=== PATIENT | female | born 1945 | race Caucasian/White ===

== ENCOUNTER 2021-03-11 21:54 | Inpatient (IN) | payer MEDICARE, MEDICAID ==
[~2021-03-11] VITALS: Ht 162.6 cm; Wt 86.8 kg
[2021-03-11] MEDS ORDERED: NiCARDipine HCL 25 MG in SODIUM CHLORIDE 0.9% 240 ML IV PRN ×2 (22:15)
[2021-03-11] MEDS ORDERED: ONDANSETRON HCL 4 MG/2 ML VIAL IVP PRN ×2 (22:15)
[2021-03-11] MEDS ORDERED: DEXTROSE 50%-WATER 25 GM/50 ML SYRINGE IVP PRN (22:30)
[2021-03-11] MEDS ORDERED: ESCI-8 PO (22:32)
[2021-03-11] MEDS ORDERED: CALC0.25 PO (22:32)
[2021-03-11] MEDS ORDERED: PANT-31 PO (22:32)
[2021-03-11] MEDS ORDERED: ASPI81TA87 PO (22:32)
[2021-03-11] MEDS ORDERED: ROSU20TA73 PO (22:32)
[2021-03-11] MEDS ORDERED: LOSA50TA37 PO (22:32)
[2021-03-11] MEDS ORDERED: REPAGLINIDE 2 MG CLINICAL (22:32)
[2021-03-11] MEDS ORDERED: MECL-186 PO (22:32)
[2021-03-11] MEDS ORDERED: METO50 PO (22:32)
[2021-03-12] VITALS (7 sets, daily range): BP systolic 109–162; BP diastolic 48–107
[2021-03-12 06:15] LABS: CALCIUM, TOTAL 9.1 mg/dL (8.8-10.5); CREATININE 2.81 mg/dL (0.60-1.30); MAGNESIUM 2.5 mg/dL (1.80-2.40); POTASSIUM 4.3 mmol/L (3.5-5.1)
[2021-03-12 06:19] LABS: BASOPHILS % (AUTO) 0.6 % (0.0-2.0); EOSINOPHILS % (AUTO) 0.8 % (1.0-6.0); HEMATOCRIT 35.4 % (36-46); HEMOGLOBIN 11.8 g/dL (12.0-16.0); LYMPHOCYTES # (AUTO) 2.4 K/uL (1.0-4.8); LYMPHOCYTES % (AUTO) 25.6 % (22.0-44.0); MEAN CORPUSCULAR HEMOGLOBIN 28.9 pg (26.0-34.0); MEAN CORPUSCULAR HGB CONC 33.3 G/dL (31.0-37.0); MEAN CORPUSCULAR VOLUME 87 fL (80-100); MONOCYTES # (AUTO) 0.8 K/uL (0.1-1.0); MONOCYTES % (AUTO) 8.4 % (2.0-9.0); NEUTROPHILS # (AUTO) 6.1 K/uL (1.8-7.7); NEUTROPHILS % (AUTO) 64.6 % (40.0-70.0); PLATELET COUNT (AUTO) 306 K/uL (150-450); RED BLOOD CELL COUNT(AUTO) 4.07 MIL/uL (4.00-5.20); RED CELL DISTRIBUTION WIDTH 13.5 % (11.5-14.5)
[2021-03-12] MEDS: INSULIN LISPRO 100 UNITS/ML SQ PRN ×2 (17:37→21:01)
[2021-03-12] MEDS: LOSARTAN POTASSIUM 50 MG TABLET PO SCH (17:39)
[2021-03-12] MEDS: METOPROLOL TARTRATE 50 MG TABLET PO SCH (20:53)
[2021-03-12] MEDS: ACETAMINOPHEN 325 MG TABLET PO PRN (20:53)
[2021-03-12] MEDS: HydrALAZINE HCL 20 MG/ML VIAL IVP PRN (22:41)
[2021-03-13] VITALS (7 sets, daily range): BP systolic 133–149; BP diastolic 56–82
[2021-03-13 02:04] LABS: GLUCOSE,POINT OF CARE 197 MG/DL (70-110)
[2021-03-13 02:04] LABS: GLUCOSE,POINT OF CARE 277 MG/DL (70-110)
[2021-03-13] MEDS: HydrALAZINE HCL 20 MG/ML VIAL IVP PRN (02:55)
[2021-03-13 08:21] LABS: GLUCOMETER DEV NAME(LOC) 5S.2B; GLUCOSE,POINT OF CARE 210 MG/DL (70-110)
[2021-03-13] MEDS: INSULIN LISPRO 100 UNITS/ML SQ PRN ×4 (08:32→20:53)
[2021-03-13] MEDS: LOSARTAN POTASSIUM 50 MG TABLET PO SCH (08:48)
[2021-03-13] MEDS: METOPROLOL TARTRATE 50 MG TABLET PO SCH ×2 (08:48→20:31)
[2021-03-13 12:35] LABS: GLUCOMETER DEV NAME(LOC) 5S.2B; GLUCOSE,POINT OF CARE 279 MG/DL (70-110)
[2021-03-13 15:34] LABS: COVID AG,FIA SOURCE NASAL SWAB
[2021-03-13 22:31] LABS: GLUCOMETER DEV NAME(LOC) 5N.3; GLUCOSE,POINT OF CARE 187 MG/DL (70-110)
[2021-03-13 22:31] LABS: GLUCOMETER DEV NAME(LOC) 5N.3; GLUCOSE,POINT OF CARE 224 MG/DL (70-110)
[2021-03-14 00:07] VITALS: BP 139/69
[2021-03-14 04:26] VITALS: BP 154/72
[2021-03-14] MEDS: HydrALAZINE HCL 20 MG/ML VIAL IVP PRN (04:31)
[2021-03-14 05:51] LABS: GLUCOMETER DEV NAME(LOC) 5S.2B; GLUCOSE,POINT OF CARE 207 MG/DL (70-110)
[2021-03-14 05:54] LABS: BASOPHILS % (AUTO) 0.4 % (0.0-2.0); EOSINOPHILS % (AUTO) 0.5 % (1.0-6.0); HEMATOCRIT 32.3 % (36-46); HEMOGLOBIN 11.1 g/dL (12.0-16.0); LYMPHOCYTES # (AUTO) 2.6 K/uL (1.0-4.8); MEAN CORPUSCULAR HEMOGLOBIN 29.5 pg (26.0-34.0); MEAN CORPUSCULAR HGB CONC 34.2 G/dL (31.0-37.0); MEAN CORPUSCULAR VOLUME 86 fL (80-100); MONOCYTES # (AUTO) 0.7 K/uL (0.1-1.0); MONOCYTES % (AUTO) 9.5 % (2.0-9.0); NEUTROPHILS # (AUTO) 4.3 K/uL (1.8-7.7); NEUTROPHILS % (AUTO) 55.6 % (40.0-70.0); PLATELET COUNT (AUTO) 283 K/uL (150-450); RED BLOOD CELL COUNT(AUTO) 3.75 MIL/uL (4.00-5.20); RED CELL DISTRIBUTION WIDTH 13.7 % (11.5-14.5)
[2021-03-14] MEDS: INSULIN LISPRO 100 UNITS/ML SQ PRN ×2 (05:55→12:34)
[2021-03-14] MEDS: ACETAMINOPHEN 325 MG TABLET PO PRN (05:56)
[2021-03-14 06:07] LABS: CALCIUM, TOTAL 8.9 mg/dL (8.8-10.5); CREATININE 3.31 mg/dL (0.60-1.30); POTASSIUM 3.6 mmol/L (3.5-5.1)
[2021-03-14 06:20] VITALS: BP 121/59
[2021-03-14 07:30] VITALS: BP 124/63
[2021-03-14] MEDS: METOPROLOL TARTRATE 50 MG TABLET PO SCH (08:20)
[2021-03-14] MEDS: LOSARTAN POTASSIUM 50 MG TABLET PO SCH (08:20)
[2021-03-14 11:56] VITALS: BP 146/78
[2021-03-14 12:17] LABS: GLUCOMETER DEV NAME(LOC) 5S.2B; GLUCOSE,POINT OF CARE 231 MG/DL (70-110)
[2021-03-14] MEDS ORDERED: METO25 PO (15:52)
[2021-03-14] MEDS ORDERED: CYCL05OE OU (15:52)
[2021-03-14] MEDS ORDERED: LATA2.5D14 OU (15:52)
[2021-03-14] MEDS ORDERED: CALC0.253 PO (15:52)
[2021-03-21] MEDS ORDERED: ASPI-1450 PO (02:57)
[2021-03-21] MEDS ORDERED: ESCI-8 PO (02:57)
[2021-03-21] MEDS ORDERED: REPA1TAB5 PO (02:57)
[2021-03-21] MEDS ORDERED: PANT-31 PO (02:57)
[2021-03-21] MEDS ORDERED: ROSU20TA73 PO (02:57)
[2021-03-21] MEDS ORDERED: INSU300I SQ (02:57)
[2021-03-22] MEDS ORDERED: REPA2TAB8 PO (14:20)
[2021-03-23] MEDS ORDERED: CYCL05OE OU (02:31)
[2021-03-23] MEDS ORDERED: AMLO-258 PO (02:31)
[2021-03-23] MEDS ORDERED: SENN8.6T90 PO (02:31)
[2021-03-23] MEDS ORDERED: HYDR25TA84 PO (02:31)
[2021-03-23] MEDS ORDERED: XALA2.5OS OU (02:31)
== END 2021-03-14 14:10 | DRG 64 ==
LOC: EMS 22:05 → ICU 22:30 → 5S 03-13 06:00
PROVIDERS: ADMIT Internal Medicine; ATTEND Internal Medicine
DX: I61.1 Nontraumatic intracerebral hemorrhage in hemisphere, cortical (principal); G93.6 Cerebral edema; Z20.822 Contact with and (suspected) exposure to COVID-19; I99.8 Other disorder of circulatory system; Z60.2 Problems related to living alone; E78.5 Hyperlipidemia, unspecified; E11.22 Type 2 diabetes mellitus with diabetic chronic kidney disease; I12.9 Hypertensive chronic kidney disease with stage 1 through stage 4 chronic kidney disease, or unspecified chronic kidney disease; N18.30 Chronic kidney disease, stage 3 unspecified; Z79.899 Other long term (current) drug therapy
CPT/HCPCS: 70450; 80048; 82962; 83735; 85025; 87081; 92526; 92610; 97112; 97116; 97162; 97167; 97530; 97535; 99285; G0378; J0360; J3490; J7050

== ENCOUNTER 2022-07-19 16:45 | Inpatient (IN) | payer MEDICARE, MEDICAID ==
[~2022-07-19] VITALS: Ht 157.5 cm; Wt 79.5 kg
[~2022-07-19 16:45] MED LIST: AMLO-258 NG; CALC0.253 NG; CYCL05OE OU; ESCI-8 PO; HEPARIN SODIUM,PORCINE 1,000 UNITS/ML VIAL ONE; HYDR25TA84 PO; INSU100V SQ; INSU300I SQ; LATA2.5D14 OU; METO25 PO; PANT-31 PO; REPA2TAB8 PO; ROSU20TA73 NG; SENN8.6T90 NG; SOLOSTAR SQ
[2022-07-19] MEDS ORDERED: DEXTROSE 50%-WATER 25 GM/50 ML SYRINGE IVP PRN (18:00)
[2022-07-19] MEDS ORDERED: LACTULOSE 20 GM/30 ML SOLUTION UDCUP PO PRN (18:00)
[2022-07-19] MEDS ORDERED: CeFAZolin 1 GM/DEXTROSE 50 ML IV SCH (19:00)
[2022-07-19 20:00] VITALS: BP 144/55
[2022-07-19] MEDS ORDERED: SODIUM CHLORIDE 0.9% 250 ML IV ONE (22:06)
[2022-07-19] MEDS: INSULIN LISPRO 100 UNITS/ML SQ PRN (22:33)
[2022-07-19 22:36] LABS: GLUCOMETER DEV NAME(LOC) 2WR.2B; GLUCOSE,POINT OF CARE 233 MG/DL (70-110)
[2022-07-19] MEDS: MEGESTROL ACETATE 40 MG TABLET PO SCH (22:50)
[2022-07-19] MEDS: CITALOPRAM HYDROBROMIDE 10 MG TABLET PO SCH (22:50)
[2022-07-19] MEDS: DORZOLAMIDE HCL 2% 10 ML OPHTHALMIC SOLUTION OU SCH (22:50)
[2022-07-19] MEDS: LATANOPROST 0.005% 2.5 ML OPHTHALMIC SOLUTION OU SCH (22:50)
[2022-07-19] MEDS: METOPROLOL TARTRATE 50 MG TABLET PO SCH (22:51)
[2022-07-19] MEDS: PANTOPRAZOLE SODIUM 40 MG DR TABLET PO SCH (22:59)
[2022-07-19] MEDS: APIXABAN 2.5 MG TABLET PO SCH (22:59)
[2022-07-19] MEDS: FUROSEMIDE 40 MG TABLET PO SCH (22:59)
[2022-07-19 23:00] VITALS: BP 147/64
[2022-07-19] MEDS: INSULIN GLARGINE,HUM.REC.ANLOG 100 UNITS/ML SQ SCH (23:06)
[2022-07-20] MEDS: ETHYL ALCOHOL 62% ANTISEPTIC NASAL SANITIZER 0.6 ML AMPUL NASAL SCH ×3 (00:32→21:12)
[2022-07-20 07:11] LABS: GLUCOMETER DEV NAME(LOC) 2WR.1C; GLUCOSE,POINT OF CARE 187 MG/DL (70-110)
[2022-07-20] MEDS: DORZOLAMIDE HCL 2% 10 ML OPHTHALMIC SOLUTION OU SCH ×2 (07:41→21:11)
[2022-07-20] MEDS: PANTOPRAZOLE SODIUM 40 MG DR TABLET PO SCH ×2 (07:43→21:01)
[2022-07-20] MEDS: FUROSEMIDE 40 MG TABLET PO SCH ×2 (07:44→21:01)
[2022-07-20] MEDS: APIXABAN 2.5 MG TABLET PO SCH ×2 (07:45→21:01)
[2022-07-20] MEDS: MEGESTROL ACETATE 40 MG TABLET PO SCH ×2 (07:46→21:01)
[2022-07-20] MEDS: CALCITRIOL 0.25 MCG CAPSULE PO SCH (07:47)
[2022-07-20] MEDS: METOPROLOL TARTRATE 50 MG TABLET PO SCH ×2 (07:48→21:01)
[2022-07-20] MEDS: FOLIC ACID/VIT B COMPLEX AND C TABLET PO SCH (07:50)
[2022-07-20] MEDS: ROSUVASTATIN CALCIUM 20 MG TABLET PO SCH (07:51)
[2022-07-20] MEDS: INSULIN LISPRO 100 UNITS/ML SQ PRN ×3 (07:54→21:11)
[2022-07-20 08:03] LABS: EOSINOPHILS % (AUTO) 2.8 % (1.0-6.0); HEMATOCRIT 28.5 % (36-46); HEMOGLOBIN 9.8 g/dL (12.0-16.0); LYMPHOCYTES # (AUTO) 1.9 K/uL (1.0-4.8); LYMPHOCYTES % (AUTO) 36.5 % (22.0-44.0); MEAN CORPUSCULAR HEMOGLOBIN 30.9 pg (26.0-34.0); MEAN CORPUSCULAR HGB CONC 34.4 G/dL (31.0-37.0); MEAN CORPUSCULAR VOLUME 90 fL (80-100); MONOCYTES # (AUTO) 0.8 K/uL (0.1-1.0); MONOCYTES % (AUTO) 15.7 % (2.0-9.0); NEUTROPHILS # (AUTO) 2.3 K/uL (1.8-7.7); PLATELET COUNT (AUTO) 289 K/uL (150-450); RED BLOOD CELL COUNT(AUTO) 3.17 MIL/uL (4.00-5.20)
[2022-07-20 08:21] LABS: ALBUMIN 1.9 g/dL (3.4-5.0); ALKALINE PHOSPHATASE 115 U/L (46-116); ANION GAP 7 mmol/L (8-16); ASPARTATE AMINOTRANSFERASE 17 U/L (15-37); BILIRUBIN,TOTAL 0.6 mg/dL (0.1-1.0); CALCIUM, TOTAL 8.4 mg/dL (8.8-10.5); CARBON DIOXIDE 30 mmol/L (22-29); CHLORIDE 99 mmol/L (98-107); CREATININE 4.65 mg/dL (0.60-1.30); GLOMERULAR FILTR. RATE CALC 9 mL/min (>60); GLUCOSE,RANDOM 168 mg/dL (70-110); POTASSIUM 3.6 mmol/L (3.5-5.1); SODIUM SERUM 136 mmol/L (136-145); UREA NITROGEN, BLOOD 32 mg/dL (7-18)
[2022-07-20 08:58] LABS: ALANINE AMINOTRANSFERASE < 6 U/L (12-78)
[2022-07-20] MEDS ORDERED: CALCITRIOL 0.25 MCG CAPSULE PO SCH (09:00)
[2022-07-20] MEDS ORDERED: PANTOPRAZOLE SODIUM 40 MG DR TABLET PO SCH (09:00)
[2022-07-20] MEDS: ACETAMINOPHEN 325 MG TABLET PO PRN (11:05)
[2022-07-20 11:07] VITALS: BP 135/65
[2022-07-20 11:52] LABS: GLUCOMETER DEV NAME(LOC) 2WR.2B; GLUCOSE,POINT OF CARE 159 MG/DL (70-110)
[2022-07-20 17:31] LABS: GLUCOMETER DEV NAME(LOC) 2WR.2B; GLUCOSE,POINT OF CARE 124 MG/DL (70-110)
[2022-07-20 21:00] VITALS: BP 148/66
[2022-07-20] MEDS: LATANOPROST 0.005% 2.5 ML OPHTHALMIC SOLUTION OU SCH (21:00)
[2022-07-20] MEDS: CITALOPRAM HYDROBROMIDE 10 MG TABLET PO SCH (21:01)
[2022-07-20] MEDS: INSULIN GLARGINE,HUM.REC.ANLOG 100 UNITS/ML SQ SCH (21:10)
[2022-07-20] MEDS: 0.9% SODIUM CHLORIDE 10 ML SYRINGE IVP SCH (21:12)
[2022-07-20 21:51] LABS: GLUCOMETER DEV NAME(LOC) 2WR.2B; GLUCOSE,POINT OF CARE 189 MG/DL (70-110)
[2022-07-21] VITALS (13 sets, daily range): BP systolic 133–163; BP diastolic 53–78
[2022-07-21 07:11] LABS: GLUCOMETER DEV NAME(LOC) 2WR.2B; GLUCOSE,POINT OF CARE 132 MG/DL (70-110)
[2022-07-21] MEDS: ETHYL ALCOHOL 62% ANTISEPTIC NASAL SANITIZER 0.6 ML AMPUL NASAL SCH ×2 (08:51→22:06)
[2022-07-21] MEDS: APIXABAN 2.5 MG TABLET PO SCH ×2 (08:52→22:18)
[2022-07-21] MEDS: DOCUSATE SODIUM 250 MG CAPSULE PO SCH ×2 (08:52→22:18)
[2022-07-21] MEDS: PANTOPRAZOLE SODIUM 40 MG DR TABLET PO SCH ×2 (08:52→22:18)
[2022-07-21] MEDS: 0.9% SODIUM CHLORIDE 10 ML SYRINGE IVP SCH ×2 (08:53→22:27)
[2022-07-21] MEDS: FOLIC ACID/VIT B COMPLEX AND C TABLET PO SCH (08:53)
[2022-07-21] MEDS: ROSUVASTATIN CALCIUM 20 MG TABLET PO SCH (08:54)
[2022-07-21] MEDS: DORZOLAMIDE HCL 2% 10 ML OPHTHALMIC SOLUTION OU SCH ×2 (08:54→22:19)
[2022-07-21] MEDS: MEGESTROL ACETATE 40 MG TABLET PO SCH ×2 (08:54→22:18)
[2022-07-21] MEDS: CALCITRIOL 0.25 MCG CAPSULE PO SCH (08:55)
[2022-07-21] MEDS: FUROSEMIDE 40 MG TABLET PO SCH ×2 (09:00→22:18)
[2022-07-21] MEDS: CARVEDILOL 6.25 MG TABLET PO SCH ×2 (09:00→22:18)
[2022-07-21] MEDS: EPOETIN ALFA 10,000 UNITS/ML 2 ML VIAL SQ SCH (09:09)
[2022-07-21] MEDS: ACETAMINOPHEN 325 MG TABLET PO PRN (09:33)
[2022-07-21 11:46] LABS: GLUCOMETER DEV NAME(LOC) 2WR.1C; GLUCOSE,POINT OF CARE 208 MG/DL (70-110)
[2022-07-21] MEDS: INSULIN LISPRO 100 UNITS/ML SQ PRN ×2 (12:30→22:17)
[2022-07-21] MEDS ORDERED: SODIUM CHLORIDE 0.9% 1,000 ML ONE (14:28)
[2022-07-21 19:26] LABS: GLUCOMETER DEV NAME(LOC) 2WR.1C; GLUCOSE,POINT OF CARE 118 MG/DL (70-110)
[2022-07-21] MEDS: INSULIN GLARGINE,HUM.REC.ANLOG 100 UNITS/ML SQ SCH (22:15)
[2022-07-21] MEDS: CITALOPRAM HYDROBROMIDE 10 MG TABLET PO SCH (22:18)
[2022-07-21] MEDS: SENNOSIDES 8.6 MG TABLET PO SCH (22:18)
[2022-07-21] MEDS: LATANOPROST 0.005% 2.5 ML OPHTHALMIC SOLUTION OU SCH (22:19)
[2022-07-21 22:46] LABS: GLUCOMETER DEV NAME(LOC) 2WR.1C; GLUCOSE,POINT OF CARE 170 MG/DL (70-110)
[2022-07-22 07:16] LABS: GLUCOMETER DEV NAME(LOC) 2WR.1C; GLUCOSE,POINT OF CARE 81 MG/DL (70-110)
[2022-07-22 08:30] VITALS: BP 141/64
[2022-07-22] MEDS: FUROSEMIDE 40 MG TABLET PO SCH ×2 (08:37→21:45)
[2022-07-22] MEDS: ETHYL ALCOHOL 62% ANTISEPTIC NASAL SANITIZER 0.6 ML AMPUL NASAL SCH ×2 (08:37→21:45)
[2022-07-22] MEDS: DOCUSATE SODIUM 250 MG CAPSULE PO SCH ×2 (08:37→21:45)
[2022-07-22] MEDS: CARVEDILOL 6.25 MG TABLET PO SCH ×2 (08:37→21:45)
[2022-07-22] MEDS: PANTOPRAZOLE SODIUM 40 MG DR TABLET PO SCH ×2 (08:37→21:45)
[2022-07-22] MEDS: FOLIC ACID/VIT B COMPLEX AND C TABLET PO SCH (08:38)
[2022-07-22] MEDS: MEGESTROL ACETATE 40 MG TABLET PO SCH ×2 (08:38→21:45)
[2022-07-22] MEDS: ROSUVASTATIN CALCIUM 20 MG TABLET PO SCH (08:38)
[2022-07-22] MEDS: CALCITRIOL 0.25 MCG CAPSULE PO SCH (08:38)
[2022-07-22] MEDS: 0.9% SODIUM CHLORIDE 10 ML SYRINGE IVP SCH ×2 (08:38→22:22)
[2022-07-22] MEDS: APIXABAN 2.5 MG TABLET PO SCH ×2 (08:38→21:45)
[2022-07-22] MEDS: DORZOLAMIDE HCL 2% 10 ML OPHTHALMIC SOLUTION OU SCH ×2 (08:41→21:46)
[2022-07-22] MEDS: ACETAMINOPHEN 325 MG TABLET PO PRN (11:29)
[2022-07-22] MEDS: INSULIN LISPRO 100 UNITS/ML SQ PRN ×3 (12:18→21:52)
[2022-07-22 13:26] LABS: GLUCOMETER DEV NAME(LOC) 2WR.2B; GLUCOSE,POINT OF CARE 169 MG/DL (70-110)
[2022-07-22] MEDS: SEVELAMER CARBONATE 800 MG TABLET PO SCH (17:11)
[2022-07-22 18:11] LABS: GLUCOMETER DEV NAME(LOC) 2WR.1C; GLUCOSE,POINT OF CARE 145 MG/DL (70-110)
[2022-07-22 20:00] VITALS: BP 145/64
[2022-07-22] MEDS: SENNOSIDES 8.6 MG TABLET PO SCH (21:45)
[2022-07-22] MEDS: LATANOPROST 0.005% 2.5 ML OPHTHALMIC SOLUTION OU SCH (21:46)
[2022-07-22] MEDS: INSULIN GLARGINE,HUM.REC.ANLOG 100 UNITS/ML SQ SCH (21:47)
[2022-07-22] MEDS: CITALOPRAM HYDROBROMIDE 10 MG TABLET PO SCH (22:21)
[2022-07-22] MEDS: MELATONIN 3 MG TABLET PO PRN (22:21)
[2022-07-22 22:26] LABS: GLUCOMETER DEV NAME(LOC) 2WR.1C; GLUCOSE,POINT OF CARE 144 MG/DL (70-110)
[2022-07-23] VITALS (11 sets, daily range): BP systolic 113–155; BP diastolic 50–68
[2022-07-23 07:06] LABS: GLUCOMETER DEV NAME(LOC) 2WR.2B; GLUCOSE,POINT OF CARE 109 MG/DL (70-110)
[2022-07-23] MEDS: SEVELAMER CARBONATE 800 MG TABLET PO SCH ×3 (08:16→18:41)
[2022-07-23] MEDS: DOCUSATE SODIUM 250 MG CAPSULE PO SCH ×2 (08:17→21:00)
[2022-07-23] MEDS: DORZOLAMIDE HCL 2% 10 ML OPHTHALMIC SOLUTION OU SCH ×2 (08:17→20:53)
[2022-07-23] MEDS: ETHYL ALCOHOL 62% ANTISEPTIC NASAL SANITIZER 0.6 ML AMPUL NASAL SCH ×2 (08:17→20:52)
[2022-07-23] MEDS: ROSUVASTATIN CALCIUM 20 MG TABLET PO SCH (08:17)
[2022-07-23] MEDS: CARVEDILOL 6.25 MG TABLET PO SCH ×2 (08:17→20:54)
[2022-07-23] MEDS: 0.9% SODIUM CHLORIDE 10 ML SYRINGE IVP SCH (08:17)
[2022-07-23] MEDS: FUROSEMIDE 40 MG TABLET PO SCH ×2 (08:18→20:55)
[2022-07-23] MEDS: APIXABAN 2.5 MG TABLET PO SCH ×2 (08:18→20:54)
[2022-07-23] MEDS: FOLIC ACID/VIT B COMPLEX AND C TABLET PO SCH (08:18)
[2022-07-23] MEDS: MEGESTROL ACETATE 40 MG TABLET PO SCH ×2 (08:18→20:55)
[2022-07-23] MEDS: PANTOPRAZOLE SODIUM 40 MG DR TABLET PO SCH ×2 (08:18→20:55)
[2022-07-23] MEDS: CALCITRIOL 0.25 MCG CAPSULE PO SCH (08:19)
[2022-07-23] MEDS: EPOETIN ALFA 10,000 UNITS/ML 2 ML VIAL SQ SCH (08:20)
[2022-07-23] MEDS ORDERED: HEPARIN SODIUM,PORCINE 1,000 UNITS/ML VIAL IVP ONE (12:00)
[2022-07-23] MEDS: INSULIN LISPRO 100 UNITS/ML SQ PRN ×3 (12:16→21:22)
[2022-07-23] MEDS ORDERED: SODIUM CHLORIDE 0.9% 1,000 ML ONE (14:20)
[2022-07-23 14:41] LABS: GLUCOMETER DEV NAME(LOC) 2WR.1C; GLUCOSE,POINT OF CARE 189 MG/DL (70-110)
[2022-07-23 19:06] LABS: GLUCOMETER DEV NAME(LOC) 2WR.1C; GLUCOSE,POINT OF CARE 148 MG/DL (70-110)
[2022-07-23] MEDS: LATANOPROST 0.005% 2.5 ML OPHTHALMIC SOLUTION OU SCH (20:53)
[2022-07-23] MEDS: CITALOPRAM HYDROBROMIDE 10 MG TABLET PO SCH (20:54)
[2022-07-23] MEDS: MELATONIN 3 MG TABLET PO PRN (20:56)
[2022-07-23] MEDS: SENNOSIDES 8.6 MG TABLET PO SCH (21:00)
[2022-07-23] MEDS: INSULIN GLARGINE,HUM.REC.ANLOG 100 UNITS/ML SQ SCH (21:23)
[2022-07-23 23:01] LABS: GLUCOMETER DEV NAME(LOC) 2WR.2B; GLUCOSE,POINT OF CARE 161 MG/DL (70-110)
[2022-07-24] MEDS: SEVELAMER CARBONATE 800 MG TABLET PO SCH ×3 (07:56→17:40)
[2022-07-24 08:00] VITALS: BP 157/74
[2022-07-24] MEDS: INSULIN LISPRO 100 UNITS/ML SQ PRN ×4 (08:00→20:09)
[2022-07-24] MEDS: ETHYL ALCOHOL 62% ANTISEPTIC NASAL SANITIZER 0.6 ML AMPUL NASAL SCH ×2 (08:26→20:01)
[2022-07-24] MEDS: DORZOLAMIDE HCL 2% 10 ML OPHTHALMIC SOLUTION OU SCH ×2 (08:26→20:02)
[2022-07-24] MEDS: CARVEDILOL 6.25 MG TABLET PO SCH ×2 (08:27→20:02)
[2022-07-24] MEDS: ROSUVASTATIN CALCIUM 20 MG TABLET PO SCH (08:27)
[2022-07-24] MEDS: APIXABAN 2.5 MG TABLET PO SCH ×2 (08:27→20:02)
[2022-07-24] MEDS: PANTOPRAZOLE SODIUM 40 MG DR TABLET PO SCH ×2 (08:28→20:02)
[2022-07-24] MEDS: CALCITRIOL 0.25 MCG CAPSULE PO SCH (08:28)
[2022-07-24] MEDS: FUROSEMIDE 40 MG TABLET PO SCH ×2 (08:28→20:01)
[2022-07-24] MEDS: MEGESTROL ACETATE 40 MG TABLET PO SCH ×2 (08:28→20:03)
[2022-07-24] MEDS: FOLIC ACID/VIT B COMPLEX AND C TABLET PO SCH (08:28)
[2022-07-24] MEDS: DOCUSATE SODIUM 250 MG CAPSULE PO SCH ×2 (08:30→20:03)
[2022-07-24] MEDS: ACETAMINOPHEN 325 MG TABLET PO PRN (12:07)
[2022-07-24 15:51] LABS: GLUCOMETER DEV NAME(LOC) 2WR.2B; GLUCOSE,POINT OF CARE 136 MG/DL (70-110)
[2022-07-24] MEDS: DICLOFENAC SODIUM 1% 100 GM GEL [2GM] TP SCH ×2 (16:07→20:03)
[2022-07-24 17:51] LABS: GLUCOMETER DEV NAME(LOC) 2WR.1C; GLUCOSE,POINT OF CARE 162 MG/DL (70-110)
[2022-07-24 17:51] LABS: GLUCOMETER DEV NAME(LOC) 2WR.1C; GLUCOSE,POINT OF CARE 203 MG/DL (70-110)
[2022-07-24 20:00] VITALS: BP 154/73
[2022-07-24] MEDS: CITALOPRAM HYDROBROMIDE 10 MG TABLET PO SCH (20:02)
[2022-07-24] MEDS: SENNOSIDES 8.6 MG TABLET PO SCH (20:02)
[2022-07-24] MEDS: LATANOPROST 0.005% 2.5 ML OPHTHALMIC SOLUTION OU SCH (20:06)
[2022-07-24] MEDS: INSULIN GLARGINE,HUM.REC.ANLOG 100 UNITS/ML SQ SCH (20:10)
[2022-07-24 22:26] LABS: GLUCOMETER DEV NAME(LOC) 2WR.2B; GLUCOSE,POINT OF CARE 200 MG/DL (70-110)
[2022-07-25] VITALS (12 sets, daily range): BP systolic 123–177; BP diastolic 62–84
[2022-07-25 06:38] LABS: HEMATOCRIT 26.8 % (36-46); HEMOGLOBIN 9.1 g/dL (12.0-16.0); LYMPHOCYTES # (AUTO) 1.8 K/uL (1.0-4.8); LYMPHOCYTES % (AUTO) 43.9 % (22.0-44.0); MEAN CORPUSCULAR HEMOGLOBIN 30.8 pg (26.0-34.0); MEAN CORPUSCULAR HGB CONC 33.9 G/dL (31.0-37.0); MEAN CORPUSCULAR VOLUME 91 fL (80-100); MONOCYTES # (AUTO) 0.5 K/uL (0.1-1.0); MONOCYTES % (AUTO) 12.9 % (2.0-9.0); NEUTROPHILS # (AUTO) 1.6 K/uL (1.8-7.7); NEUTROPHILS % (AUTO) 37.2 % (40.0-70.0); PLATELET COUNT (AUTO) 291 K/uL (150-450); RED BLOOD CELL COUNT(AUTO) 2.95 MIL/uL (4.00-5.20); RED CELL DISTRIBUTION WIDTH 19.9 % (11.5-14.5)
[2022-07-25 06:51] LABS: CALCIUM, TOTAL 8.6 mg/dL (8.8-10.5); CREATININE 4.74 mg/dL (0.60-1.30); MAGNESIUM 2.2 mg/dL (1.80-2.40); PHOSPHORUS 2.8 mg/dL (2.5-4.9); POTASSIUM 3.7 mmol/L (3.5-5.1)
[2022-07-25 07:11] LABS: GLUCOMETER DEV NAME(LOC) 2WR.1C; GLUCOSE,POINT OF CARE 167 MG/DL (70-110)
[2022-07-25] MEDS: INSULIN LISPRO 100 UNITS/ML SQ PRN ×3 (08:56→17:55)
[2022-07-25] MEDS: SEVELAMER CARBONATE 800 MG TABLET PO SCH ×3 (08:58→17:51)
[2022-07-25] MEDS: APIXABAN 2.5 MG TABLET PO SCH ×2 (08:58→22:49)
[2022-07-25] MEDS: PANTOPRAZOLE SODIUM 40 MG DR TABLET PO SCH ×2 (08:59→22:49)
[2022-07-25] MEDS: FUROSEMIDE 40 MG TABLET PO SCH ×2 (08:59→22:49)
[2022-07-25] MEDS: DOCUSATE SODIUM 250 MG CAPSULE PO SCH ×2 (08:59→21:00)
[2022-07-25] MEDS: EPOETIN ALFA 10,000 UNITS/ML 2 ML VIAL SQ SCH (09:00)
[2022-07-25] MEDS: CARVEDILOL 6.25 MG TABLET PO SCH ×2 (09:00→22:49)
[2022-07-25] MEDS: ETHYL ALCOHOL 62% ANTISEPTIC NASAL SANITIZER 0.6 ML AMPUL NASAL SCH ×2 (09:00→22:50)
[2022-07-25] MEDS: DORZOLAMIDE HCL 2% 10 ML OPHTHALMIC SOLUTION OU SCH ×2 (09:01→22:51)
[2022-07-25] MEDS: ROSUVASTATIN CALCIUM 20 MG TABLET PO SCH (09:01)
[2022-07-25] MEDS: FOLIC ACID/VIT B COMPLEX AND C TABLET PO SCH (09:02)
[2022-07-25] MEDS: CALCITRIOL 0.25 MCG CAPSULE PO SCH (09:02)
[2022-07-25] MEDS: MEGESTROL ACETATE 40 MG TABLET PO SCH ×2 (09:02→22:50)
[2022-07-25] MEDS: DICLOFENAC SODIUM 1% 100 GM GEL [2GM] TP SCH ×3 (09:03→22:50)
[2022-07-25] MEDS ORDERED: HEPARIN SODIUM,PORCINE 1,000 UNITS/ML VIAL IVP ONE (12:00)
[2022-07-25 12:37] LABS: GLUCOMETER DEV NAME(LOC) 2WR.1C; GLUCOSE,POINT OF CARE 206 MG/DL (70-110)
[2022-07-25 17:01] LABS: GLUCOMETER DEV NAME(LOC) 2WR.1C; GLUCOSE,POINT OF CARE 153 MG/DL (70-110)
[2022-07-25] MEDS ORDERED: SODIUM CHLORIDE 0.9% 1,000 ML ONE (17:50)
[2022-07-25] MEDS: SENNOSIDES 8.6 MG TABLET PO SCH (21:00)
[2022-07-25] MEDS: CITALOPRAM HYDROBROMIDE 10 MG TABLET PO SCH (22:49)
[2022-07-25] MEDS: INSULIN GLARGINE,HUM.REC.ANLOG 100 UNITS/ML SQ SCH (22:52)
[2022-07-25] MEDS: LATANOPROST 0.005% 2.5 ML OPHTHALMIC SOLUTION OU SCH (22:54)
[2022-07-26 00:11] LABS: GLUCOMETER DEV NAME(LOC) 2WR.2B; GLUCOSE,POINT OF CARE 134 MG/DL (70-110)
[2022-07-26 07:41] LABS: GLUCOMETER DEV NAME(LOC) 2WR.2B; GLUCOSE,POINT OF CARE 119 MG/DL (70-110)
[2022-07-26 08:20] VITALS: BP 121/53
[2022-07-26] MEDS: DOCUSATE SODIUM 250 MG CAPSULE PO SCH ×2 (09:00→20:40)
[2022-07-26] MEDS: SEVELAMER CARBONATE 800 MG TABLET PO SCH ×3 (09:04→18:02)
[2022-07-26] MEDS: CALCITRIOL 0.25 MCG CAPSULE PO SCH (09:04)
[2022-07-26] MEDS: APIXABAN 2.5 MG TABLET PO SCH ×2 (09:04→20:39)
[2022-07-26] MEDS: CARVEDILOL 6.25 MG TABLET PO SCH ×2 (09:04→20:39)
[2022-07-26] MEDS: DICLOFENAC SODIUM 1% 100 GM GEL [2GM] TP SCH ×3 (09:04→20:40)
[2022-07-26] MEDS: FUROSEMIDE 40 MG TABLET PO SCH ×2 (09:04→20:39)
[2022-07-26] MEDS: PANTOPRAZOLE SODIUM 40 MG DR TABLET PO SCH ×2 (09:04→20:39)
[2022-07-26] MEDS: ROSUVASTATIN CALCIUM 20 MG TABLET PO SCH (09:05)
[2022-07-26] MEDS: MEGESTROL ACETATE 40 MG TABLET PO SCH ×2 (09:05→20:40)
[2022-07-26] MEDS: ETHYL ALCOHOL 62% ANTISEPTIC NASAL SANITIZER 0.6 ML AMPUL NASAL SCH ×2 (09:05→20:39)
[2022-07-26] MEDS: FOLIC ACID/VIT B COMPLEX AND C TABLET PO SCH (09:05)
[2022-07-26] MEDS: DORZOLAMIDE HCL 2% 10 ML OPHTHALMIC SOLUTION OU SCH ×2 (09:06→21:00)
[2022-07-26] MEDS: INSULIN LISPRO 100 UNITS/ML SQ PRN ×3 (12:32→21:00)
[2022-07-26 12:36] LABS: GLUCOMETER DEV NAME(LOC) 2WR.2B; GLUCOSE,POINT OF CARE 196 MG/DL (70-110)
[2022-07-26 17:26] LABS: GLUCOMETER DEV NAME(LOC) 2WR.2B; GLUCOSE,POINT OF CARE 163 MG/DL (70-110)
[2022-07-26 20:35] VITALS: BP 164/73
[2022-07-26] MEDS: CITALOPRAM HYDROBROMIDE 10 MG TABLET PO SCH (20:39)
[2022-07-26] MEDS: MELATONIN 3 MG TABLET PO PRN (20:39)
[2022-07-26] MEDS: LATANOPROST 0.005% 2.5 ML OPHTHALMIC SOLUTION OU SCH (20:39)
[2022-07-26] MEDS: SENNOSIDES 8.6 MG TABLET PO SCH (20:42)
[2022-07-26 20:46] LABS: GLUCOMETER DEV NAME(LOC) 2WR.2B; GLUCOSE,POINT OF CARE 195 MG/DL (70-110)
[2022-07-26] MEDS: INSULIN GLARGINE,HUM.REC.ANLOG 100 UNITS/ML SQ SCH (20:59)
[2022-07-26 22:20] VITALS: BP 145/66
[2022-07-27 06:31] LABS: GLUCOMETER DEV NAME(LOC) 2WR.1C; GLUCOSE,POINT OF CARE 159 MG/DL (70-110)
[2022-07-27 08:05] VITALS: BP 178/78
[2022-07-27 08:30] VITALS: BP 140/63
[2022-07-27] MEDS: ETHYL ALCOHOL 62% ANTISEPTIC NASAL SANITIZER 0.6 ML AMPUL NASAL SCH ×2 (08:38→21:15)
[2022-07-27] MEDS: SEVELAMER CARBONATE 800 MG TABLET PO SCH ×3 (08:38→16:47)
[2022-07-27] MEDS: DORZOLAMIDE HCL 2% 10 ML OPHTHALMIC SOLUTION OU SCH ×2 (08:39→21:17)
[2022-07-27] MEDS: DOCUSATE SODIUM 250 MG CAPSULE PO SCH ×2 (08:39→21:00)
[2022-07-27] MEDS: APIXABAN 2.5 MG TABLET PO SCH ×2 (08:40→21:19)
[2022-07-27] MEDS: ROSUVASTATIN CALCIUM 20 MG TABLET PO SCH (08:40)
[2022-07-27] MEDS: CARVEDILOL 6.25 MG TABLET PO SCH ×2 (08:40→21:19)
[2022-07-27] MEDS: FOLIC ACID/VIT B COMPLEX AND C TABLET PO SCH (08:41)
[2022-07-27] MEDS: CALCITRIOL 0.25 MCG CAPSULE PO SCH (08:41)
[2022-07-27] MEDS: PANTOPRAZOLE SODIUM 40 MG DR TABLET PO SCH ×2 (08:41→21:20)
[2022-07-27] MEDS: FUROSEMIDE 40 MG TABLET PO SCH ×2 (08:41→21:19)
[2022-07-27] MEDS: DICLOFENAC SODIUM 1% 100 GM GEL [2GM] TP SCH ×3 (08:42→21:20)
[2022-07-27] MEDS: INSULIN LISPRO 100 UNITS/ML SQ PRN ×3 (08:43→21:32)
[2022-07-27] MEDS: AmLODIPine BESYLATE 5 MG TABLET PO SCH (10:42)
[2022-07-27 11:07] VITALS: BP 175/93
[2022-07-27] MEDS: CloNIDine HCL 0.1 MG TABLET PO PRN (11:07)
[2022-07-27] MEDS: ACETAMINOPHEN 325 MG TABLET PO PRN (11:07)
[2022-07-27 11:30] VITALS: BP 143/77
[2022-07-27 12:36] LABS: GLUCOMETER DEV NAME(LOC) 2WR.2B; GLUCOSE,POINT OF CARE 131 MG/DL (70-110)
[2022-07-27 20:46] LABS: GLUCOMETER DEV NAME(LOC) 2WR.2B; GLUCOSE,POINT OF CARE 189 MG/DL (70-110)
[2022-07-27 20:56] LABS: GLUCOMETER DEV NAME(LOC) 2WR.1C; GLUCOSE,POINT OF CARE 191 MG/DL (70-110)
[2022-07-27 21:00] VITALS: BP 144/72
[2022-07-27] MEDS: SENNOSIDES 8.6 MG TABLET PO SCH (21:00)
[2022-07-27] MEDS: LATANOPROST 0.005% 2.5 ML OPHTHALMIC SOLUTION OU SCH (21:15)
[2022-07-27] MEDS: CITALOPRAM HYDROBROMIDE 10 MG TABLET PO SCH (21:17)
[2022-07-27] MEDS: MELATONIN 3 MG TABLET PO PRN (21:21)
[2022-07-27] MEDS: INSULIN GLARGINE,HUM.REC.ANLOG 100 UNITS/ML SQ SCH (21:49)
[2022-07-28] VITALS (17 sets, daily range): BP systolic 124–174; BP diastolic 51–97
[2022-07-28 07:01] LABS: GLUCOMETER DEV NAME(LOC) 2WR.2B; GLUCOSE,POINT OF CARE 179 MG/DL (70-110)
[2022-07-28] MEDS: SEVELAMER CARBONATE 800 MG TABLET PO SCH ×3 (08:38→22:22)
[2022-07-28] MEDS: PANTOPRAZOLE SODIUM 40 MG DR TABLET PO SCH ×2 (08:39→22:01)
[2022-07-28] MEDS: APIXABAN 2.5 MG TABLET PO SCH ×2 (08:39→22:01)
[2022-07-28] MEDS: DOCUSATE SODIUM 250 MG CAPSULE PO SCH ×2 (08:39→21:00)
[2022-07-28] MEDS: DICLOFENAC SODIUM 1% 100 GM GEL [2GM] TP SCH ×3 (08:40→22:00)
[2022-07-28] MEDS: ETHYL ALCOHOL 62% ANTISEPTIC NASAL SANITIZER 0.6 ML AMPUL NASAL SCH ×2 (08:40→22:00)
[2022-07-28] MEDS: DORZOLAMIDE HCL 2% 10 ML OPHTHALMIC SOLUTION OU SCH ×2 (08:40→22:00)
[2022-07-28] MEDS: FOLIC ACID/VIT B COMPLEX AND C TABLET PO SCH (08:40)
[2022-07-28] MEDS: ROSUVASTATIN CALCIUM 20 MG TABLET PO SCH (08:41)
[2022-07-28] MEDS: CALCITRIOL 0.25 MCG CAPSULE PO SCH (08:44)
[2022-07-28] MEDS: INSULIN LISPRO 100 UNITS/ML SQ PRN ×2 (08:47→12:37)
[2022-07-28] MEDS: EPOETIN ALFA 10,000 UNITS/ML 2 ML VIAL SQ SCH (08:47)
[2022-07-28] MEDS: FUROSEMIDE 40 MG TABLET PO SCH ×2 (09:00→22:01)
[2022-07-28] MEDS: AmLODIPine BESYLATE 5 MG TABLET PO SCH (09:00)
[2022-07-28] MEDS: CARVEDILOL 6.25 MG TABLET PO SCH ×2 (09:00→22:01)
[2022-07-28 11:53] LABS: APPEARANCE,URINE HAZY (CLEAR); BILIRUBIN,URINE NEGATIVE (NEGATIVE); GLUCOSE, URINE (UA) 70-100 mg/dL (NEGATIVE); KETONES,URINE NEGATIVE (NEGATIVE); LEUKOCYTE ESTERASE ,URINE NEGATIVE (NEGATIVE); NITRATE,URINE NEGATIVE (NEGATIVE); OCCULT BLOOD,URINE LARGE (NEGATIVE); PROTEIN,URINE 100-200,SEE CONFIRM mg/dL (NEGATIVE); SPECIFIC GRAVITIY, URINE 1.008 (1.003-1.030); UROBILINOGEN,URINE <=1.0 mg/dL (<=1.0)
[2022-07-28] MEDS ORDERED: HEPARIN SODIUM,PORCINE 1,000 UNITS/ML VIAL IVP ONE (12:00)
[2022-07-28 12:22] LABS: BASOPHILS % (AUTO) 0.9 % (0.0-2.0); EOSINOPHILS % (AUTO) 4.5 % (1.0-6.0); HEMATOCRIT 28.5 % (36-46); HEMOGLOBIN 9.5 g/dL (12.0-16.0); LYMPHOCYTES # (AUTO) 1.9 K/uL (1.0-4.8); MEAN CORPUSCULAR HEMOGLOBIN 30.8 pg (26.0-34.0); MEAN CORPUSCULAR HGB CONC 33.4 G/dL (31.0-37.0); MEAN CORPUSCULAR VOLUME 92 fL (80-100); MONOCYTES # (AUTO) 0.6 K/uL (0.1-1.0); MONOCYTES % (AUTO) 10.5 % (2.0-9.0); NEUTROPHILS # (AUTO) 2.6 K/uL (1.8-7.7); NEUTROPHILS % (AUTO) 49.1 % (40.0-70.0); PLATELET COUNT (AUTO) 281 K/uL (150-450); RED CELL DISTRIBUTION WIDTH 19.9 % (11.5-14.5)
[2022-07-28 12:25] LABS: BACTERIA,URINE None Seen /HPF (None Seen); RBC,URINE 51-100 /HPF (0-2); SQUAMOUS EPITHELIAL CELL,UR Few /LPF (None Seen); SULFOSALICYLIC ACID,URINE 2+ (Negative); WBC,URINE None Seen /HPF (0-5)
[2022-07-28 12:26] LABS: GLUCOMETER DEV NAME(LOC) 2WR.2B; GLUCOSE,POINT OF CARE 202 MG/DL (70-110)
[2022-07-28 12:27] LABS: CALCIUM, TOTAL 9.3 mg/dL (8.8-10.5); CREATININE 6.48 mg/dL (0.60-1.30); POTASSIUM 3.9 mmol/L (3.5-5.1)
[2022-07-28 12:41] LABS: MAGNESIUM 2.5 mg/dL (1.80-2.40); THYROID STIMULATING HORMONE 5.83 uIU/mL (0.36-3.74)
[2022-07-28 18:06] LABS: GLUCOMETER DEV NAME(LOC) 2WR.2B; GLUCOSE,POINT OF CARE 142 MG/DL (70-110)
[2022-07-28] MEDS: SENNOSIDES 8.6 MG TABLET PO SCH (21:00)
[2022-07-28] MEDS: LATANOPROST 0.005% 2.5 ML OPHTHALMIC SOLUTION OU SCH (22:00)
[2022-07-28] MEDS: CITALOPRAM HYDROBROMIDE 10 MG TABLET PO SCH (22:01)
[2022-07-28] MEDS: MELATONIN 3 MG TABLET PO PRN (22:01)
[2022-07-28] MEDS: INSULIN GLARGINE,HUM.REC.ANLOG 100 UNITS/ML SQ SCH (22:18)
[2022-07-28 23:06] LABS: GLUCOMETER DEV NAME(LOC) 2WR.2B; GLUCOSE,POINT OF CARE 125 MG/DL (70-110)
[2022-07-29] VITALS (8 sets, daily range): BP systolic 129–180; BP diastolic 67–103
[2022-07-29] MEDS: CloNIDine HCL 0.1 MG TABLET PO PRN (05:08)
[2022-07-29 07:01] LABS: GLUCOMETER DEV NAME(LOC) 2WR.2B; GLUCOSE,POINT OF CARE 122 MG/DL (70-110)
[2022-07-29] MEDS: SEVELAMER CARBONATE 800 MG TABLET PO SCH ×4 (07:30→16:55)
[2022-07-29] MEDS: DOCUSATE SODIUM 250 MG CAPSULE PO SCH ×2 (09:00→21:37)
[2022-07-29 09:02] LABS: BASOPHILS % (AUTO) 1.1 % (0.0-2.0); EOSINOPHILS % (AUTO) 3.4 % (1.0-6.0); HEMATOCRIT 28.3 % (36-46); HEMOGLOBIN 9.5 g/dL (12.0-16.0); LYMPHOCYTES # (AUTO) 1.8 K/uL (1.0-4.8); LYMPHOCYTES % (AUTO) 41.9 % (22.0-44.0); MEAN CORPUSCULAR HEMOGLOBIN 30.7 pg (26.0-34.0); MEAN CORPUSCULAR HGB CONC 33.7 G/dL (31.0-37.0); MEAN CORPUSCULAR VOLUME 91 fL (80-100); MONOCYTES # (AUTO) 0.5 K/uL (0.1-1.0); MONOCYTES % (AUTO) 11.7 % (2.0-9.0); NEUTROPHILS # (AUTO) 1.8 K/uL (1.8-7.7); NEUTROPHILS % (AUTO) 41.9 % (40.0-70.0); PLATELET COUNT (AUTO) 280 K/uL (150-450); RED BLOOD CELL COUNT(AUTO) 3.11 MIL/uL (4.00-5.20); RED CELL DISTRIBUTION WIDTH 19.8 % (11.5-14.5)
[2022-07-29 09:11] LABS: CREATININE 3.65 mg/dL (0.60-1.30); POTASSIUM 3.3 mmol/L (3.5-5.1)
[2022-07-29 09:18] LABS: ALBUMIN 2.3 g/dL (3.4-5.0); BILIRUBIN,TOTAL 0.7 mg/dL (0.1-1.0); CALCIUM, TOTAL 8.6 mg/dL (8.8-10.5); TOTAL PROTEIN, SERUM 6.8 g/dL (6.4-8.2)
[2022-07-29 09:23] LABS: INR 1.1 (0.9-1.1); PROTHROMBIN TIME 11.3 SEC (9.4-11.6)
[2022-07-29] MEDS ORDERED: LevETIRAcetam 500 MG TABLET PO SCH (11:45)
[2022-07-29] MEDS: DORZOLAMIDE HCL 2% 10 ML OPHTHALMIC SOLUTION OU SCH ×2 (12:17→21:35)
[2022-07-29] MEDS: ETHYL ALCOHOL 62% ANTISEPTIC NASAL SANITIZER 0.6 ML AMPUL NASAL SCH ×2 (12:17→21:34)
[2022-07-29] MEDS: APIXABAN 2.5 MG TABLET PO SCH ×2 (12:18→21:38)
[2022-07-29] MEDS: ROSUVASTATIN CALCIUM 20 MG TABLET PO SCH (12:18)
[2022-07-29] MEDS: CARVEDILOL 6.25 MG TABLET PO SCH (12:18)
[2022-07-29] MEDS: FUROSEMIDE 40 MG TABLET PO SCH ×2 (12:19→21:38)
[2022-07-29] MEDS: FOLIC ACID/VIT B COMPLEX AND C TABLET PO SCH (12:19)
[2022-07-29] MEDS: AmLODIPine BESYLATE 5 MG TABLET PO SCH (12:19)
[2022-07-29] MEDS: CALCITRIOL 0.25 MCG CAPSULE PO SCH (12:20)
[2022-07-29] MEDS: DICLOFENAC SODIUM 1% 100 GM GEL [2GM] TP SCH ×3 (12:20→21:40)
[2022-07-29] MEDS: PANTOPRAZOLE SODIUM 40 MG DR TABLET PO SCH ×2 (12:22→21:38)
[2022-07-29 12:50] LABS: GLUCOMETER DEV NAME(LOC) 2WR.1C; GLUCOSE,POINT OF CARE 125 MG/DL (70-110)
[2022-07-29] MEDS: ACETAMINOPHEN 325 MG TABLET PO PRN (12:55)
[2022-07-29] MEDS ORDERED: POTASSIUM CHLORIDE 20 MEQ ER TABLET PO ONE (13:15)
[2022-07-29] MEDS: INSULIN LISPRO 100 UNITS/ML SQ PRN ×2 (17:57→22:01)
[2022-07-29 18:16] LABS: GLUCOMETER DEV NAME(LOC) 2WR.1C; GLUCOSE,POINT OF CARE 174 MG/DL (70-110)
[2022-07-29] MEDS ORDERED: LORazepam 2 MG/ML VIAL IVP PRN ×2 (18:45→21:15)
[2022-07-29] MEDS ORDERED: CARVEDILOL 12.5 MG TABLET PO SCH (21:00)
[2022-07-29] MEDS ORDERED: SENNOSIDES 8.6 MG TABLET PO SCH (21:00)
[2022-07-29] MEDS ORDERED: CITALOPRAM HYDROBROMIDE 10 MG TABLET PO SCH (21:00)
[2022-07-29] MEDS: LATANOPROST 0.005% 2.5 ML OPHTHALMIC SOLUTION OU SCH (21:36)
[2022-07-29 21:45] LABS: GLUCOMETER DEV NAME(LOC) 2WR.1C; GLUCOSE,POINT OF CARE 149 MG/DL (70-110)
[2022-07-29] MEDS: INSULIN GLARGINE,HUM.REC.ANLOG 100 UNITS/ML SQ SCH (21:59)
[2022-07-30] VITALS (17 sets, daily range): BP systolic 123–186; BP diastolic 56–86
[2022-07-30] MEDS: LORazepam 2 MG/ML VIAL IVP PRN ×2 (06:05→13:57)
[2022-07-30 06:55] LABS: GLUCOMETER DEV NAME(LOC) 2WR.1C; GLUCOSE,POINT OF CARE 103 MG/DL (70-110)
[2022-07-30] MEDS: SEVELAMER CARBONATE 800 MG TABLET PO SCH (07:30)
[2022-07-30] MEDS ORDERED: LACOSAMIDE 50 MG TABLET PO SCH (09:45)
[2022-07-30] MEDS ORDERED: MELATONIN 3 MG TABLET NG PRN (11:19)
[2022-07-30] MEDS ORDERED: LACTULOSE 20 GM/30 ML SOLUTION UDCUP NG PRN (11:19)
[2022-07-30] MEDS ORDERED: ACETAMINOPHEN 650 MG/20.3 ML SOLUTION UDCUP NG PRN (11:30)
[2022-07-30] MEDS: ETHYL ALCOHOL 62% ANTISEPTIC NASAL SANITIZER 0.6 ML AMPUL NASAL SCH ×2 (11:30→22:12)
[2022-07-30] MEDS: 0.9% SODIUM CHLORIDE 10 ML SYRINGE IVP SCH ×2 (11:31→22:11)
[2022-07-30] MEDS: DORZOLAMIDE HCL 2% 10 ML OPHTHALMIC SOLUTION OU SCH ×2 (11:31→22:17)
[2022-07-30] MEDS: EPOETIN ALFA 10,000 UNITS/ML 2 ML VIAL SQ SCH (11:32)
[2022-07-30] MEDS: DICLOFENAC SODIUM 1% 100 GM GEL [2GM] TP SCH ×2 (11:33→22:09)
[2022-07-30 12:17] LABS: GLUCOMETER DEV NAME(LOC) 2WR.1C; GLUCOSE,POINT OF CARE 105 MG/DL (70-110)
[2022-07-30] MEDS: SEVELAMER CARBONATE 800 MG POWDER PACKET NG SCH ×2 (12:30→22:10)
[2022-07-30] MEDS: LANSOPRAZOLE 15 MG SOLUBLE TABLET NG SCH ×2 (13:15→22:15)
[2022-07-30] MEDS: LevETIRAcetam 100 MG/ML 5 ML SOLUTION UDCUP NG SCH (13:16)
[2022-07-30] MEDS: DOCUSATE SODIUM 100 MG/10 ML LIQUID UDCUP NG SCH ×2 (13:17→21:00)
[2022-07-30] MEDS ORDERED: SODIUM CHLORIDE 0.9% 2,000 ML ONE (16:05)
[2022-07-30] MEDS ORDERED: CloNIDine HCL 0.1 MG TABLET NG PRN (16:30)
[2022-07-30] MEDS ORDERED: DEXTROSE 50%-WATER 25 GM/50 ML SYRINGE IVP PRN (20:00)
[2022-07-30] MEDS: SENNOSIDES 8.8 MG/5 ML SYRUP UDCUP NG SCH (21:00)
[2022-07-30] MEDS: CITALOPRAM HYDROBROMIDE 10 MG TABLET NG SCH (22:15)
[2022-07-30] MEDS: FUROSEMIDE 40 MG TABLET NG SCH (22:16)
[2022-07-30] MEDS: APIXABAN 2.5 MG TABLET NG SCH (22:16)
[2022-07-30] MEDS: CARVEDILOL 12.5 MG TABLET NG SCH (22:16)
[2022-07-30] MEDS: LACOSAMIDE 50 MG TABLET NG SCH (22:16)
[2022-07-30] MEDS: LATANOPROST 0.005% 2.5 ML OPHTHALMIC SOLUTION OU SCH (22:17)
[2022-07-30] MEDS: INSULIN GLARGINE,HUM.REC.ANLOG 100 UNITS/ML SQ SCH (22:20)
[2022-07-30 22:37] LABS: GLUCOMETER DEV NAME(LOC) 2WR.2B; GLUCOSE,POINT OF CARE 93 MG/DL (70-110)
[2022-07-31] VITALS: BP 147/71
[2022-07-31 02:11] LABS: GLUCOMETER DEV NAME(LOC) 2WR.2B; GLUCOSE,POINT OF CARE 95 MG/DL (70-110)
[2022-07-31 04:20] VITALS: BP 158/71
[2022-07-31 06:41] LABS: GLUCOMETER DEV NAME(LOC) 2WR.1C; GLUCOSE,POINT OF CARE 77 MG/DL (70-110)
[2022-07-31 08:02] VITALS: BP 159/72
[2022-07-31] MEDS: AmLODIPine BESYLATE 5 MG TABLET NG SCH (08:39)
[2022-07-31] MEDS: LACOSAMIDE 50 MG TABLET NG SCH ×2 (08:39→20:53)
[2022-07-31] MEDS: APIXABAN 2.5 MG TABLET NG SCH ×2 (08:39→20:51)
[2022-07-31] MEDS: DOCUSATE SODIUM 100 MG/10 ML LIQUID UDCUP NG SCH ×2 (08:40→20:41)
[2022-07-31] MEDS: SEVELAMER CARBONATE 800 MG POWDER PACKET NG SCH ×3 (08:40→17:05)
[2022-07-31] MEDS: LANSOPRAZOLE 15 MG SOLUBLE TABLET NG SCH ×2 (08:40→20:51)
[2022-07-31] MEDS: LevETIRAcetam 100 MG/ML 5 ML SOLUTION UDCUP NG SCH ×2 (08:41→20:51)
[2022-07-31] MEDS: ROSUVASTATIN CALCIUM 20 MG TABLET NG SCH (08:41)
[2022-07-31] MEDS: FOLIC ACID/VIT B COMPLEX AND C TABLET NG SCH (08:41)
[2022-07-31] MEDS: CALCITRIOL 0.25 MCG CAPSULE NG SCH (08:41)
[2022-07-31] MEDS: CARVEDILOL 12.5 MG TABLET NG SCH ×2 (08:46→20:52)
[2022-07-31] MEDS: FUROSEMIDE 40 MG TABLET NG SCH ×2 (08:46→20:51)
[2022-07-31] MEDS: ETHYL ALCOHOL 62% ANTISEPTIC NASAL SANITIZER 0.6 ML AMPUL NASAL SCH ×2 (08:46→20:52)
[2022-07-31] MEDS: 0.9% SODIUM CHLORIDE 10 ML SYRINGE IVP SCH ×2 (08:47→20:52)
[2022-07-31] MEDS: DORZOLAMIDE HCL 2% 10 ML OPHTHALMIC SOLUTION OU SCH ×2 (08:51→20:50)
[2022-07-31] MEDS: DICLOFENAC SODIUM 1% 100 GM GEL [2GM] TP SCH ×3 (08:52→20:50)
[2022-07-31 09:39] LABS: CREATININE 3.15 mg/dL (0.60-1.30); POTASSIUM 4.1 mmol/L (3.5-5.1)
[2022-07-31 10:30] VITALS: BP 148/70
[2022-07-31] MEDS ORDERED: LACOSAMIDE 50 MG TABLET NG ONE (11:30)
[2022-07-31 12:50] LABS: GLUCOMETER DEV NAME(LOC) 2WR.2B; GLUCOSE,POINT OF CARE 110 MG/DL (70-110)
[2022-07-31] MEDS ORDERED: HEPARIN SODIUM,PORCINE 1,000 UNITS/ML VIAL IVP ONE (12:57)
[2022-07-31 14:04] VITALS: BP 141/61
[2022-07-31 20:00] VITALS: BP 144/68
[2022-07-31] MEDS: LATANOPROST 0.005% 2.5 ML OPHTHALMIC SOLUTION OU SCH (20:51)
[2022-07-31] MEDS: SENNOSIDES 8.8 MG/5 ML SYRUP UDCUP NG SCH (20:53)
[2022-07-31] MEDS: INSULIN GLARGINE,HUM.REC.ANLOG 100 UNITS/ML SQ SCH (20:59)
[2022-07-31] MEDS: CITALOPRAM HYDROBROMIDE 10 MG TABLET NG SCH (21:07)
[2022-07-31 21:26] LABS: GLUCOMETER DEV NAME(LOC) 2WR.1C; GLUCOSE,POINT OF CARE 133 MG/DL (70-110)
[2022-08-01] VITALS (11 sets, daily range): BP systolic 144–178; BP diastolic 64–91
[2022-08-01] MEDS: INSULIN LISPRO 100 UNITS/ML SQ PRN ×4 (00:21→19:14)
[2022-08-01 00:36] LABS: GLUCOMETER DEV NAME(LOC) 2WR.1C; GLUCOSE,POINT OF CARE 147 MG/DL (70-110)
[2022-08-01] MEDS ORDERED: CARV12 NG (03:46)
[2022-08-01] MEDS ORDERED: FURO40 NG (03:46)
[2022-08-01] MEDS ORDERED: APIX2.5T NG (03:46)
[2022-08-01] MEDS ORDERED: LEVE500S10 NG (03:57)
[2022-08-01] MEDS ORDERED: INSLAN SQ (03:57)
[2022-08-01] MEDS ORDERED: FOLI0.8T2 NG (03:57)
[2022-08-01] MEDS ORDERED: LACO100 NG (03:57)
[2022-08-01] MEDS ORDERED: ROSU20TA73 NG (03:57)
[2022-08-01] MEDS ORDERED: SEVE0.8P6 NG (03:57)
[2022-08-01] MEDS ORDERED: XALA2.5OS OU (04:08)
[2022-08-01] MEDS ORDERED: DORZ10DR6 OU (04:08)
[2022-08-01] MEDS ORDERED: CITA10TA99 NG (04:15)
[2022-08-01] MEDS ORDERED: CLON0.1T2 NG (04:15)
[2022-08-01] MEDS ORDERED: LANS30CA56 NG (04:15)
[2022-08-01] MEDS ORDERED: DICL100G51 TP (04:17)
[2022-08-01 06:41] LABS: GLUCOMETER DEV NAME(LOC) 2WR.2B; GLUCOSE,POINT OF CARE 162 MG/DL (70-110)
[2022-08-01] MEDS: ETHYL ALCOHOL 62% ANTISEPTIC NASAL SANITIZER 0.6 ML AMPUL NASAL SCH ×2 (08:35→19:49)
[2022-08-01] MEDS: SEVELAMER CARBONATE 800 MG POWDER PACKET NG SCH ×3 (08:35→17:00)
[2022-08-01] MEDS: CARVEDILOL 12.5 MG TABLET NG SCH ×2 (09:00→20:06)
[2022-08-01] MEDS: DOCUSATE SODIUM 100 MG/10 ML LIQUID UDCUP NG SCH ×2 (09:00→19:49)
[2022-08-01] MEDS: AmLODIPine BESYLATE 5 MG TABLET NG SCH (09:00)
[2022-08-01] MEDS: 0.9% SODIUM CHLORIDE 10 ML SYRINGE IVP SCH ×2 (09:37→19:49)
[2022-08-01] MEDS: ROSUVASTATIN CALCIUM 20 MG TABLET NG SCH (09:37)
[2022-08-01] MEDS: APIXABAN 2.5 MG TABLET NG SCH ×2 (09:38→20:06)
[2022-08-01] MEDS: LevETIRAcetam 100 MG/ML 5 ML SOLUTION UDCUP NG SCH ×2 (09:38→20:05)
[2022-08-01] MEDS: LANSOPRAZOLE 15 MG SOLUBLE TABLET NG SCH ×2 (09:40→20:06)
[2022-08-01] MEDS: FUROSEMIDE 40 MG TABLET NG SCH ×2 (09:40→20:08)
[2022-08-01] MEDS: LACOSAMIDE 50 MG TABLET NG SCH ×2 (09:41→20:05)
[2022-08-01] MEDS: DORZOLAMIDE HCL 2% 10 ML OPHTHALMIC SOLUTION OU SCH ×2 (09:41→20:05)
[2022-08-01] MEDS: CALCITRIOL 0.25 MCG CAPSULE NG SCH (09:41)
[2022-08-01] MEDS: FOLIC ACID/VIT B COMPLEX AND C TABLET NG SCH (09:42)
[2022-08-01] MEDS: DICLOFENAC SODIUM 1% 100 GM GEL [2GM] TP SCH ×3 (09:42→20:06)
[2022-08-01] MEDS: EPOETIN ALFA 10,000 UNITS/ML 2 ML VIAL SQ SCH (09:48)
[2022-08-01 12:36] LABS: GLUCOMETER DEV NAME(LOC) 2WR.2B; GLUCOSE,POINT OF CARE 162 MG/DL (70-110)
[2022-08-01] MEDS ORDERED: SODIUM CHLORIDE 0.9% 1,000 ML ONE (14:38)
[2022-08-01] MEDS: SENNOSIDES 8.8 MG/5 ML SYRUP UDCUP NG SCH (19:50)
[2022-08-01 20:01] LABS: GLUCOMETER DEV NAME(LOC) 2WR.2B; GLUCOSE,POINT OF CARE 157 MG/DL (70-110)
[2022-08-01] MEDS: CITALOPRAM HYDROBROMIDE 10 MG TABLET NG SCH (20:06)
[2022-08-01] MEDS: LATANOPROST 0.005% 2.5 ML OPHTHALMIC SOLUTION OU SCH (20:15)
[2022-08-01] MEDS: HYDROCORTISONE 1% 30 GM OINTMENT TP SCH (20:16)
[2022-08-01] MEDS: INSULIN GLARGINE,HUM.REC.ANLOG 100 UNITS/ML SQ SCH (20:20)
[2022-08-01] MEDS: LORazepam 2 MG/ML VIAL IVP PRN (21:41)
[2022-08-02] MEDS: INSULIN LISPRO 100 UNITS/ML SQ PRN ×4 (00:01→18:06)
[2022-08-02 05:42] LABS: GLUCOMETER DEV NAME(LOC) 2WR.1C; GLUCOSE,POINT OF CARE 199 MG/DL (70-110)
[2022-08-02 08:02] VITALS: BP 153/73
[2022-08-02] MEDS: LACOSAMIDE 50 MG TABLET NG SCH ×2 (08:04→21:52)
[2022-08-02] MEDS: ETHYL ALCOHOL 62% ANTISEPTIC NASAL SANITIZER 0.6 ML AMPUL NASAL SCH ×2 (08:04→21:39)
[2022-08-02] MEDS: APIXABAN 2.5 MG TABLET NG SCH ×2 (08:05→21:50)
[2022-08-02] MEDS: AmLODIPine BESYLATE 5 MG TABLET NG SCH (08:05)
[2022-08-02] MEDS: CARVEDILOL 12.5 MG TABLET NG SCH ×2 (08:05→21:49)
[2022-08-02] MEDS: FUROSEMIDE 40 MG TABLET NG SCH ×2 (08:05→21:50)
[2022-08-02] MEDS: HYDROCORTISONE 1% 30 GM OINTMENT TP SCH ×2 (08:06→21:54)
[2022-08-02] MEDS: DICLOFENAC SODIUM 1% 100 GM GEL [2GM] TP SCH ×3 (08:06→21:53)
[2022-08-02] MEDS: SEVELAMER CARBONATE 800 MG POWDER PACKET NG SCH ×3 (08:07→17:24)
[2022-08-02] MEDS: CALCITRIOL 0.25 MCG CAPSULE NG SCH (08:08)
[2022-08-02] MEDS: FOLIC ACID/VIT B COMPLEX AND C TABLET NG SCH (08:08)
[2022-08-02] MEDS: LevETIRAcetam 100 MG/ML 5 ML SOLUTION UDCUP NG SCH ×2 (08:08→21:50)
[2022-08-02] MEDS: 0.9% SODIUM CHLORIDE 10 ML SYRINGE IVP SCH ×2 (08:09→21:59)
[2022-08-02] MEDS: ROSUVASTATIN CALCIUM 20 MG TABLET NG SCH (08:11)
[2022-08-02] MEDS: LANSOPRAZOLE 15 MG SOLUBLE TABLET NG SCH ×2 (08:11→21:55)
[2022-08-02] MEDS: DORZOLAMIDE HCL 2% 10 ML OPHTHALMIC SOLUTION OU SCH ×2 (08:11→21:52)
[2022-08-02] MEDS: DOCUSATE SODIUM 100 MG/10 ML LIQUID UDCUP NG SCH ×2 (08:12→21:49)
[2022-08-02 11:51] LABS: GLUCOMETER DEV NAME(LOC) 2WR.1C; GLUCOSE,POINT OF CARE 203 MG/DL (70-110)
[2022-08-02 12:31] LABS: GLUCOMETER DEV NAME(LOC) 2WR.2B; GLUCOSE,POINT OF CARE 200 MG/DL (70-110)
[2022-08-02 15:16] VITALS: BP 153/76
[2022-08-02 17:26] LABS: GLUCOMETER DEV NAME(LOC) 2WR.2B; GLUCOSE,POINT OF CARE 200 MG/DL (70-110)
[2022-08-02 21:00] VITALS: BP 152/71
[2022-08-02] MEDS: CITALOPRAM HYDROBROMIDE 10 MG TABLET NG SCH (21:48)
[2022-08-02] MEDS: SENNOSIDES 8.8 MG/5 ML SYRUP UDCUP NG SCH (21:51)
[2022-08-02] MEDS: LATANOPROST 0.005% 2.5 ML OPHTHALMIC SOLUTION OU SCH (21:53)
[2022-08-02] MEDS: INSULIN GLARGINE,HUM.REC.ANLOG 100 UNITS/ML SQ SCH (22:08)
[2022-08-02 22:46] LABS: GLUCOMETER DEV NAME(LOC) 2WR.2B; GLUCOSE,POINT OF CARE 200 MG/DL (70-110)
[2022-08-03] MEDS: INSULIN LISPRO 100 UNITS/ML SQ PRN ×2 (00:22→06:36)
[2022-08-03 00:51] LABS: GLUCOMETER DEV NAME(LOC) 2WR.2B; GLUCOSE,POINT OF CARE 262 MG/DL (70-110)
[2022-08-03 06:46] LABS: GLUCOMETER DEV NAME(LOC) 2WR.1C; GLUCOSE,POINT OF CARE 274 MG/DL (70-110)
[2022-08-03 08:00] VITALS: BP 138/67
[2022-08-03 08:43] LABS: CALCIUM, TOTAL 9.5 mg/dL (8.8-10.5); CREATININE 4.43 mg/dL (0.60-1.30); POTASSIUM 3.4 mmol/L (3.5-5.1)
[2022-08-03] MEDS: SEVELAMER CARBONATE 800 MG POWDER PACKET NG SCH ×3 (08:53→17:01)
[2022-08-03] MEDS: LANSOPRAZOLE 15 MG SOLUBLE TABLET NG SCH ×2 (08:53→21:27)
[2022-08-03] MEDS: AmLODIPine BESYLATE 5 MG TABLET NG SCH (08:54)
[2022-08-03] MEDS: 0.9% SODIUM CHLORIDE 10 ML SYRINGE IVP SCH ×2 (08:54→21:00)
[2022-08-03] MEDS: CALCITRIOL 0.25 MCG CAPSULE NG SCH (08:55)
[2022-08-03] MEDS: LevETIRAcetam 100 MG/ML 5 ML SOLUTION UDCUP NG SCH ×2 (08:55→21:27)
[2022-08-03] MEDS: DOCUSATE SODIUM 100 MG/10 ML LIQUID UDCUP NG SCH ×2 (08:55→21:32)
[2022-08-03] MEDS ORDERED: DEXTROSE 50%-WATER 25 GM/50 ML SYRINGE IVP PRN (09:15)
[2022-08-03] MEDS: DICLOFENAC SODIUM 1% 100 GM GEL [2GM] TP SCH ×3 (10:55→21:29)
[2022-08-03] MEDS: DORZOLAMIDE HCL 2% 10 ML OPHTHALMIC SOLUTION OU SCH ×2 (10:56→21:30)
[2022-08-03] MEDS: FOLIC ACID/VIT B COMPLEX AND C TABLET NG SCH (10:56)
[2022-08-03] MEDS: ETHYL ALCOHOL 62% ANTISEPTIC NASAL SANITIZER 0.6 ML AMPUL NASAL SCH ×2 (10:56→21:28)
[2022-08-03] MEDS: LACOSAMIDE 50 MG TABLET NG SCH ×2 (10:56→21:28)
[2022-08-03] MEDS: CARVEDILOL 12.5 MG TABLET NG SCH ×2 (10:57→21:28)
[2022-08-03] MEDS: APIXABAN 2.5 MG TABLET NG SCH ×2 (10:57→21:28)
[2022-08-03] MEDS: FUROSEMIDE 40 MG TABLET NG SCH ×2 (10:57→21:27)
[2022-08-03] MEDS: ROSUVASTATIN CALCIUM 20 MG TABLET NG SCH (10:57)
[2022-08-03] MEDS: HYDROCORTISONE 1% 30 GM OINTMENT TP SCH ×2 (11:36→21:29)
[2022-08-03] MEDS: INSULIN REGULAR, HUMAN 100 UNITS/ML SQ PRN ×3 (12:40→23:52)
[2022-08-03 13:46] LABS: GLUCOMETER DEV NAME(LOC) 2WR.2B; GLUCOSE,POINT OF CARE 202 MG/DL (70-110)
[2022-08-03 14:15] VITALS: BP 164/66
[2022-08-03] MEDS ORDERED: HEPARIN SODIUM,PORCINE 1,000 UNITS/ML VIAL IVP ONE (16:49)
[2022-08-03 19:11] LABS: GLUCOMETER DEV NAME(LOC) 2WR.2B; GLUCOSE,POINT OF CARE 231 MG/DL (70-110)
[2022-08-03 20:00] VITALS: BP 158/62
[2022-08-03] MEDS: CITALOPRAM HYDROBROMIDE 10 MG TABLET NG SCH (21:30)
[2022-08-03] MEDS: LATANOPROST 0.005% 2.5 ML OPHTHALMIC SOLUTION OU SCH (21:30)
[2022-08-03] MEDS: SENNOSIDES 8.8 MG/5 ML SYRUP UDCUP NG SCH (21:32)
[2022-08-03] MEDS: INSULIN GLARGINE,HUM.REC.ANLOG 100 UNITS/ML SQ SCH (21:35)
[2022-08-04] VITALS (13 sets, daily range): BP systolic 126–165; BP diastolic 62–81
[2022-08-04 00:16] LABS: GLUCOMETER DEV NAME(LOC) 2WR.2B; GLUCOSE,POINT OF CARE 247 MG/DL (70-110)
[2022-08-04] MEDS: INSULIN REGULAR, HUMAN 100 UNITS/ML SQ PRN ×2 (06:00→12:18)
[2022-08-04 06:41] LABS: GLUCOMETER DEV NAME(LOC) 2WR.1C; GLUCOSE,POINT OF CARE 278 MG/DL (70-110)
[2022-08-04] MEDS: SEVELAMER CARBONATE 800 MG POWDER PACKET NG SCH ×3 (08:46→20:07)
[2022-08-04] MEDS: FUROSEMIDE 40 MG TABLET NG SCH ×2 (08:47→20:10)
[2022-08-04] MEDS: APIXABAN 2.5 MG TABLET NG SCH ×2 (08:47→20:10)
[2022-08-04] MEDS: AmLODIPine BESYLATE 5 MG TABLET NG SCH (08:47)
[2022-08-04] MEDS: DICLOFENAC SODIUM 1% 100 GM GEL [2GM] TP SCH ×3 (08:47→20:14)
[2022-08-04] MEDS: CARVEDILOL 12.5 MG TABLET NG SCH ×2 (08:47→20:22)
[2022-08-04] MEDS: LACOSAMIDE 50 MG TABLET NG SCH ×2 (08:47→20:12)
[2022-08-04] MEDS: HYDROCORTISONE 1% 30 GM OINTMENT TP SCH ×2 (08:48→20:14)
[2022-08-04] MEDS: LANSOPRAZOLE 15 MG SOLUBLE TABLET NG SCH ×2 (08:49→20:07)
[2022-08-04] MEDS: DORZOLAMIDE HCL 2% 10 ML OPHTHALMIC SOLUTION OU SCH ×2 (08:49→22:17)
[2022-08-04] MEDS: LevETIRAcetam 100 MG/ML 5 ML SOLUTION UDCUP NG SCH ×2 (08:49→20:10)
[2022-08-04] MEDS: DOCUSATE SODIUM 100 MG/10 ML LIQUID UDCUP NG SCH ×2 (08:49→20:07)
[2022-08-04] MEDS: CALCITRIOL 0.25 MCG CAPSULE NG SCH (08:50)
[2022-08-04] MEDS: FOLIC ACID/VIT B COMPLEX AND C TABLET NG SCH (08:50)
[2022-08-04] MEDS: ETHYL ALCOHOL 62% ANTISEPTIC NASAL SANITIZER 0.6 ML AMPUL NASAL SCH ×2 (08:51→20:07)
[2022-08-04] MEDS: ROSUVASTATIN CALCIUM 20 MG TABLET NG SCH (08:52)
[2022-08-04] MEDS: EPOETIN ALFA 10,000 UNITS/ML 2 ML VIAL SQ SCH (08:52)
[2022-08-04 12:46] LABS: GLUCOMETER DEV NAME(LOC) 2WR.2B; GLUCOSE,POINT OF CARE 245 MG/DL (70-110)
[2022-08-04] MEDS ORDERED: HEPARIN SODIUM,PORCINE 1,000 UNITS/ML VIAL IVCATH ONE ×2 (18:30)
[2022-08-04] MEDS: CITALOPRAM HYDROBROMIDE 10 MG TABLET NG SCH (20:07)
[2022-08-04] MEDS: SENNOSIDES 8.8 MG/5 ML SYRUP UDCUP NG SCH (20:10)
[2022-08-04] MEDS: INSULIN GLARGINE,HUM.REC.ANLOG 100 UNITS/ML SQ SCH (20:13)
[2022-08-04] MEDS: LATANOPROST 0.005% 2.5 ML OPHTHALMIC SOLUTION OU SCH (20:13)
[2022-08-04 21:51] LABS: GLUCOMETER DEV NAME(LOC) 2WR.2B; GLUCOSE,POINT OF CARE 134 MG/DL (70-110)
[2022-08-05 06:36] LABS: GLUCOMETER DEV NAME(LOC) 2WR.2B; GLUCOSE,POINT OF CARE 189 MG/DL (70-110)
[2022-08-05 08:01] VITALS: BP 139/73
[2022-08-05] MEDS: LACOSAMIDE 50 MG TABLET NG SCH ×2 (08:26→20:17)
[2022-08-05] MEDS: DICLOFENAC SODIUM 1% 100 GM GEL [2GM] TP SCH ×3 (08:27→20:20)
[2022-08-05] MEDS: CARVEDILOL 12.5 MG TABLET NG SCH ×2 (08:27→20:17)
[2022-08-05] MEDS: LANSOPRAZOLE 15 MG SOLUBLE TABLET NG SCH ×2 (08:27→20:17)
[2022-08-05] MEDS: APIXABAN 2.5 MG TABLET NG SCH ×2 (08:27→20:19)
[2022-08-05] MEDS: ETHYL ALCOHOL 62% ANTISEPTIC NASAL SANITIZER 0.6 ML AMPUL NASAL SCH ×2 (08:27→20:18)
[2022-08-05] MEDS: FUROSEMIDE 40 MG TABLET NG SCH ×2 (08:27→20:17)
[2022-08-05] MEDS: HYDROCORTISONE 1% 30 GM OINTMENT TP SCH ×2 (08:27→20:21)
[2022-08-05] MEDS: AmLODIPine BESYLATE 5 MG TABLET NG SCH (08:27)
[2022-08-05] MEDS: SEVELAMER CARBONATE 800 MG POWDER PACKET NG SCH ×3 (08:28→17:45)
[2022-08-05] MEDS: DORZOLAMIDE HCL 2% 10 ML OPHTHALMIC SOLUTION OU SCH ×2 (08:28→20:20)
[2022-08-05] MEDS: DOCUSATE SODIUM 100 MG/10 ML LIQUID UDCUP NG SCH ×2 (08:28→20:19)
[2022-08-05] MEDS: LevETIRAcetam 100 MG/ML 5 ML SOLUTION UDCUP NG SCH ×2 (08:28→20:18)
[2022-08-05] MEDS: CALCITRIOL 0.25 MCG CAPSULE NG SCH (08:29)
[2022-08-05] MEDS: ROSUVASTATIN CALCIUM 20 MG TABLET NG SCH (08:29)
[2022-08-05] MEDS: FOLIC ACID/VIT B COMPLEX AND C TABLET NG SCH (08:29)
[2022-08-05] MEDS: INSULIN LISPRO 100 UNITS/ML SQ PRN ×4 (08:45→20:24)
[2022-08-05] MEDS: ONDANSETRON HCL 4 MG TABLET PO PRN (10:16)
[2022-08-05 12:21] LABS: GLUCOMETER DEV NAME(LOC) 2WR.2B; GLUCOSE,POINT OF CARE 252 MG/DL (70-110)
[2022-08-05] MEDS: CITALOPRAM HYDROBROMIDE 10 MG TABLET NG SCH (20:17)
[2022-08-05] MEDS: LATANOPROST 0.005% 2.5 ML OPHTHALMIC SOLUTION OU SCH (20:19)
[2022-08-05] MEDS: SENNOSIDES 8.8 MG/5 ML SYRUP UDCUP NG SCH (20:19)
[2022-08-05] MEDS: INSULIN GLARGINE,HUM.REC.ANLOG 100 UNITS/ML SQ SCH (20:23)
[2022-08-05 21:00] VITALS: BP 148/65
[2022-08-05 21:36] LABS: GLUCOMETER DEV NAME(LOC) 2WR.1C; GLUCOSE,POINT OF CARE 197 MG/DL (70-110)
[2022-08-05 21:36] LABS: GLUCOMETER DEV NAME(LOC) 2WR.2B; GLUCOSE,POINT OF CARE 174 MG/DL (70-110)
[2022-08-06] VITALS (11 sets, daily range): BP systolic 123–163; BP diastolic 55–78
[2022-08-06 07:15] LABS: GLUCOMETER DEV NAME(LOC) 2WR.1C; GLUCOSE,POINT OF CARE 154 MG/DL (70-110)
[2022-08-06] MEDS: SEVELAMER CARBONATE 800 MG POWDER PACKET NG SCH ×3 (08:17→18:53)
[2022-08-06] MEDS: ROSUVASTATIN CALCIUM 20 MG TABLET NG SCH (08:18)
[2022-08-06] MEDS: APIXABAN 2.5 MG TABLET NG SCH ×2 (08:18→20:16)
[2022-08-06] MEDS: DOCUSATE SODIUM 100 MG/10 ML LIQUID UDCUP NG SCH ×2 (08:18→20:17)
[2022-08-06] MEDS: CARVEDILOL 12.5 MG TABLET NG SCH ×2 (08:18→20:16)
[2022-08-06] MEDS: ETHYL ALCOHOL 62% ANTISEPTIC NASAL SANITIZER 0.6 ML AMPUL NASAL SCH ×2 (08:18→20:15)
[2022-08-06] MEDS: LevETIRAcetam 100 MG/ML 5 ML SOLUTION UDCUP NG SCH ×2 (08:19→20:18)
[2022-08-06] MEDS: FUROSEMIDE 40 MG TABLET NG SCH ×2 (08:20→20:16)
[2022-08-06] MEDS: AmLODIPine BESYLATE 5 MG TABLET NG SCH (08:20)
[2022-08-06] MEDS: FOLIC ACID/VIT B COMPLEX AND C TABLET NG SCH (08:20)
[2022-08-06] MEDS: LANSOPRAZOLE 15 MG SOLUBLE TABLET NG SCH ×2 (08:21→20:16)
[2022-08-06] MEDS: CALCITRIOL 0.25 MCG CAPSULE NG SCH (08:21)
[2022-08-06] MEDS: HYDROCORTISONE 1% 30 GM OINTMENT TP SCH ×2 (08:22→20:15)
[2022-08-06] MEDS: DICLOFENAC SODIUM 1% 100 GM GEL [2GM] TP SCH ×3 (08:22→20:15)
[2022-08-06] MEDS: EPOETIN ALFA 10,000 UNITS/ML 2 ML VIAL SQ SCH (08:22)
[2022-08-06] MEDS: DORZOLAMIDE HCL 2% 10 ML OPHTHALMIC SOLUTION OU SCH ×2 (08:22→20:44)
[2022-08-06] MEDS: INSULIN LISPRO 100 UNITS/ML SQ PRN ×3 (08:28→20:47)
[2022-08-06] MEDS: LACOSAMIDE 50 MG TABLET NG SCH ×2 (09:30→20:15)
[2022-08-06 13:01] LABS: GLUCOMETER DEV NAME(LOC) 2WR.1C; GLUCOSE,POINT OF CARE 264 MG/DL (70-110)
[2022-08-06] MEDS ORDERED: SODIUM CHLORIDE 0.9% 1,000 ML ONE (14:34)
[2022-08-06 19:11] LABS: GLUCOMETER DEV NAME(LOC) 2WR.1C; GLUCOSE,POINT OF CARE 126 MG/DL (70-110)
[2022-08-06] MEDS: CITALOPRAM HYDROBROMIDE 10 MG TABLET NG SCH (20:16)
[2022-08-06] MEDS: SENNOSIDES 8.8 MG/5 ML SYRUP UDCUP NG SCH (20:17)
[2022-08-06] MEDS: LATANOPROST 0.005% 2.5 ML OPHTHALMIC SOLUTION OU SCH (20:18)
[2022-08-06] MEDS: INSULIN GLARGINE,HUM.REC.ANLOG 100 UNITS/ML SQ SCH (20:47)
[2022-08-06 21:06] LABS: GLUCOMETER DEV NAME(LOC) 2WR.2B; GLUCOSE,POINT OF CARE 181 MG/DL (70-110)
[2022-08-07 06:51] LABS: GLUCOMETER DEV NAME(LOC) 2WR.1C; GLUCOSE,POINT OF CARE 156 MG/DL (70-110)
[2022-08-07 07:55] VITALS: BP 142/66
[2022-08-07] MEDS: SEVELAMER CARBONATE 800 MG POWDER PACKET NG SCH ×4 (07:55→16:55)
[2022-08-07] MEDS: ETHYL ALCOHOL 62% ANTISEPTIC NASAL SANITIZER 0.6 ML AMPUL NASAL SCH ×2 (07:55→20:28)
[2022-08-07] MEDS: APIXABAN 2.5 MG TABLET NG SCH ×2 (07:56→20:28)
[2022-08-07] MEDS: DOCUSATE SODIUM 100 MG/10 ML LIQUID UDCUP NG SCH ×2 (07:56→20:32)
[2022-08-07] MEDS: ROSUVASTATIN CALCIUM 20 MG TABLET NG SCH (07:56)
[2022-08-07] MEDS: CARVEDILOL 12.5 MG TABLET NG SCH ×2 (07:56→20:28)
[2022-08-07] MEDS: AmLODIPine BESYLATE 5 MG TABLET NG SCH (07:57)
[2022-08-07] MEDS: FUROSEMIDE 40 MG TABLET NG SCH ×2 (07:57→20:34)
[2022-08-07] MEDS: FOLIC ACID/VIT B COMPLEX AND C TABLET NG SCH (07:57)
[2022-08-07] MEDS: LevETIRAcetam 100 MG/ML 5 ML SOLUTION UDCUP NG SCH ×2 (07:57→20:32)
[2022-08-07] MEDS: LANSOPRAZOLE 15 MG SOLUBLE TABLET NG SCH ×2 (07:58→20:29)
[2022-08-07] MEDS: CALCITRIOL 0.25 MCG CAPSULE NG SCH (07:58)
[2022-08-07] MEDS: DORZOLAMIDE HCL 2% 10 ML OPHTHALMIC SOLUTION OU SCH ×2 (07:58→20:29)
[2022-08-07] MEDS: LACOSAMIDE 50 MG TABLET NG SCH ×2 (07:58→20:34)
[2022-08-07] MEDS: DICLOFENAC SODIUM 1% 100 GM GEL [2GM] TP SCH ×3 (07:59→20:28)
[2022-08-07] MEDS: HYDROCORTISONE 1% 30 GM OINTMENT TP SCH ×2 (07:59→20:29)
[2022-08-07] MEDS: INSULIN LISPRO 100 UNITS/ML SQ PRN ×3 (08:07→21:05)
[2022-08-07] MEDS: ONDANSETRON HCL 4 MG TABLET PO PRN (12:39)
[2022-08-07] MEDS ORDERED: HEPARIN SODIUM,PORCINE 1,000 UNITS/ML VIAL IVP ONE (16:43)
[2022-08-07 17:51] LABS: GLUCOMETER DEV NAME(LOC) 2WR.2B; GLUCOSE,POINT OF CARE 135 MG/DL (70-110)
[2022-08-07 17:51] LABS: GLUCOMETER DEV NAME(LOC) 2WR.1C; GLUCOSE,POINT OF CARE 189 MG/DL (70-110)
[2022-08-07 20:26] VITALS: BP 142/66
[2022-08-07] MEDS: CITALOPRAM HYDROBROMIDE 10 MG TABLET PO SCH (20:30)
[2022-08-07] MEDS: SENNOSIDES 8.8 MG/5 ML SYRUP UDCUP NG SCH (20:32)
[2022-08-07] MEDS: LATANOPROST 0.005% 2.5 ML OPHTHALMIC SOLUTION OU SCH (20:34)
[2022-08-07] MEDS: INSULIN GLARGINE,HUM.REC.ANLOG 100 UNITS/ML SQ SCH (21:06)
[2022-08-07] MEDS ORDERED: MELATONIN 3 MG TABLET PO PRN (21:45)
[2022-08-07] MEDS ORDERED: LACTULOSE 20 GM/30 ML SOLUTION UDCUP PO PRN (21:45)
[2022-08-07] MEDS ORDERED: ACETAMINOPHEN 325 MG TABLET PO PRN (21:45)
[2022-08-07 22:10] LABS: GLUCOMETER DEV NAME(LOC) 2WR.1C; GLUCOSE,POINT OF CARE 168 MG/DL (70-110)
[2022-08-08] VITALS (11 sets, daily range): BP systolic 118–151; BP diastolic 62–99
[2022-08-08] MEDS ORDERED: CloNIDine HCL 0.1 MG TABLET PO PRN (00:30)
[2022-08-08 07:11] LABS: GLUCOMETER DEV NAME(LOC) 2WR.2B; GLUCOSE,POINT OF CARE 156 MG/DL (70-110)
[2022-08-08] MEDS: LANSOPRAZOLE 30 MG CAPSULE PO SCH ×2 (07:20→18:55)
[2022-08-08] MEDS: INSULIN LISPRO 100 UNITS/ML SQ PRN ×3 (08:32→21:30)
[2022-08-08] MEDS: LevETIRAcetam 500 MG TABLET PO SCH ×2 (08:36→21:07)
[2022-08-08] MEDS: ETHYL ALCOHOL 62% ANTISEPTIC NASAL SANITIZER 0.6 ML AMPUL NASAL SCH ×2 (08:36→21:17)
[2022-08-08] MEDS: FUROSEMIDE 40 MG TABLET PO SCH ×2 (08:36→21:19)
[2022-08-08] MEDS: SEVELAMER CARBONATE 800 MG TABLET PO SCH ×3 (08:36→18:53)
[2022-08-08] MEDS: LACOSAMIDE 50 MG TABLET PO SCH ×2 (08:37→21:07)
[2022-08-08] MEDS: ROSUVASTATIN CALCIUM 20 MG TABLET PO SCH (08:38)
[2022-08-08] MEDS: APIXABAN 2.5 MG TABLET PO SCH ×2 (08:38→21:10)
[2022-08-08] MEDS: CALCITRIOL 0.25 MCG CAPSULE PO SCH (08:39)
[2022-08-08] MEDS: FOLIC ACID/VIT B COMPLEX AND C TABLET PO SCH (08:40)
[2022-08-08] MEDS: DORZOLAMIDE HCL 2% 10 ML OPHTHALMIC SOLUTION OU SCH ×2 (08:41→21:16)
[2022-08-08] MEDS: DICLOFENAC SODIUM 1% 100 GM GEL [2GM] TP SCH ×3 (08:42→21:19)
[2022-08-08] MEDS: DOCUSATE SODIUM 250 MG CAPSULE PO SCH ×2 (09:00→21:17)
[2022-08-08] MEDS: CARVEDILOL 12.5 MG TABLET PO SCH ×2 (09:00→21:10)
[2022-08-08] MEDS: AmLODIPine BESYLATE 5 MG TABLET PO SCH (09:00)
[2022-08-08] MEDS: HYDROCORTISONE 1% 30 GM OINTMENT TP SCH ×2 (09:50→21:19)
[2022-08-08] MEDS: EPOETIN ALFA 10,000 UNITS/ML 2 ML VIAL SQ SCH (09:51)
[2022-08-08 14:26] LABS: GLUCOMETER DEV NAME(LOC) 2WR.2B; GLUCOSE,POINT OF CARE 200 MG/DL (70-110)
[2022-08-08] MEDS ORDERED: SODIUM CHLORIDE 0.9% 1,000 ML ONE (14:34)
[2022-08-08 20:26] LABS: GLUCOMETER DEV NAME(LOC) 2WR.1C; GLUCOSE,POINT OF CARE 108 MG/DL (70-110)
[2022-08-08] MEDS ORDERED: SENNOSIDES 8.6 MG TABLET PO SCH (21:00)
[2022-08-08] MEDS: LATANOPROST 0.005% 2.5 ML OPHTHALMIC SOLUTION OU SCH (21:16)
[2022-08-08] MEDS: CITALOPRAM HYDROBROMIDE 10 MG TABLET PO SCH (21:17)
[2022-08-08] MEDS: INSULIN GLARGINE,HUM.REC.ANLOG 100 UNITS/ML SQ SCH (21:30)
[2022-08-08 21:51] LABS: GLUCOMETER DEV NAME(LOC) 2WR.1C; GLUCOSE,POINT OF CARE 177 MG/DL (70-110)
[2022-08-09] MEDS: LANSOPRAZOLE 30 MG CAPSULE PO SCH ×2 (06:47→17:24)
[2022-08-09 07:36] LABS: GLUCOMETER DEV NAME(LOC) 2WR.2B; GLUCOSE,POINT OF CARE 104 MG/DL (70-110)
[2022-08-09 08:24] VITALS: BP 148/66
[2022-08-09] MEDS: SEVELAMER CARBONATE 800 MG TABLET PO SCH ×3 (08:46→17:23)
[2022-08-09] MEDS: DOCUSATE SODIUM 250 MG CAPSULE PO SCH ×3 (09:00→20:41)
[2022-08-09] MEDS: APIXABAN 2.5 MG TABLET PO SCH ×2 (09:41→20:42)
[2022-08-09] MEDS: ETHYL ALCOHOL 62% ANTISEPTIC NASAL SANITIZER 0.6 ML AMPUL NASAL SCH ×2 (09:42→20:33)
[2022-08-09] MEDS: DORZOLAMIDE HCL 2% 10 ML OPHTHALMIC SOLUTION OU SCH ×2 (09:42→20:40)
[2022-08-09] MEDS: AmLODIPine BESYLATE 5 MG TABLET PO SCH (09:42)
[2022-08-09] MEDS: LevETIRAcetam 500 MG TABLET PO SCH ×2 (09:42→22:30)
[2022-08-09] MEDS: CARVEDILOL 12.5 MG TABLET PO SCH ×2 (09:42→20:42)
[2022-08-09] MEDS: FUROSEMIDE 40 MG TABLET PO SCH ×2 (09:42→20:42)
[2022-08-09] MEDS: ROSUVASTATIN CALCIUM 20 MG TABLET PO SCH (09:43)
[2022-08-09] MEDS: FOLIC ACID/VIT B COMPLEX AND C TABLET PO SCH (09:44)
[2022-08-09] MEDS: CALCITRIOL 0.25 MCG CAPSULE PO SCH (09:44)
[2022-08-09] MEDS: DICLOFENAC SODIUM 1% 100 GM GEL [2GM] TP SCH ×3 (09:44→20:44)
[2022-08-09] MEDS: HYDROCORTISONE 1% 30 GM OINTMENT TP SCH ×2 (09:44→20:45)
[2022-08-09] MEDS: LACOSAMIDE 50 MG TABLET PO SCH ×2 (09:49→20:43)
[2022-08-09] MEDS: INSULIN LISPRO 100 UNITS/ML SQ PRN ×3 (12:16→20:34)
[2022-08-09 12:35] LABS: GLUCOMETER DEV NAME(LOC) 2WR.2B; GLUCOSE,POINT OF CARE 202 MG/DL (70-110)
[2022-08-09 18:16] LABS: GLUCOMETER DEV NAME(LOC) 2WR.1C; GLUCOSE,POINT OF CARE 157 MG/DL (70-110)
[2022-08-09] MEDS: INSULIN GLARGINE,HUM.REC.ANLOG 100 UNITS/ML SQ SCH (20:35)
[2022-08-09] MEDS: LATANOPROST 0.005% 2.5 ML OPHTHALMIC SOLUTION OU SCH (20:41)
[2022-08-09] MEDS: CITALOPRAM HYDROBROMIDE 10 MG TABLET PO SCH (20:42)
[2022-08-09] MEDS: SENNOSIDES 8.6 MG TABLET PO SCH (20:43)
[2022-08-09 21:00] VITALS: BP 149/66
[2022-08-09 21:31] LABS: GLUCOMETER DEV NAME(LOC) 2WR.2B; GLUCOSE,POINT OF CARE 144 MG/DL (70-110)
[2022-08-10] MEDS: LANSOPRAZOLE 30 MG CAPSULE PO SCH ×2 (06:39→16:43)
[2022-08-10 07:11] LABS: GLUCOMETER DEV NAME(LOC) 2WR.2B; GLUCOSE,POINT OF CARE 181 MG/DL (70-110)
[2022-08-10] MEDS: FUROSEMIDE 40 MG TABLET PO SCH ×2 (07:31→20:29)
[2022-08-10] MEDS: ETHYL ALCOHOL 62% ANTISEPTIC NASAL SANITIZER 0.6 ML AMPUL NASAL SCH ×2 (07:31→20:55)
[2022-08-10] MEDS: SEVELAMER CARBONATE 800 MG TABLET PO SCH ×3 (07:32→16:43)
[2022-08-10] MEDS: APIXABAN 2.5 MG TABLET PO SCH ×2 (07:32→20:30)
[2022-08-10] MEDS: DOCUSATE SODIUM 250 MG CAPSULE PO SCH ×2 (07:33→20:30)
[2022-08-10] MEDS: LevETIRAcetam 500 MG TABLET PO SCH ×2 (07:33→20:29)
[2022-08-10] MEDS: DORZOLAMIDE HCL 2% 10 ML OPHTHALMIC SOLUTION OU SCH ×2 (07:34→20:28)
[2022-08-10] MEDS: DICLOFENAC SODIUM 1% 100 GM GEL [2GM] TP SCH ×3 (07:34→20:28)
[2022-08-10] MEDS: ROSUVASTATIN CALCIUM 20 MG TABLET PO SCH (07:36)
[2022-08-10] MEDS: CALCITRIOL 0.25 MCG CAPSULE PO SCH (07:36)
[2022-08-10] MEDS: FOLIC ACID/VIT B COMPLEX AND C TABLET PO SCH (07:36)
[2022-08-10] MEDS: HYDROCORTISONE 1% 30 GM OINTMENT TP SCH ×2 (07:37→20:52)
[2022-08-10] MEDS: CARVEDILOL 12.5 MG TABLET PO SCH ×2 (07:44→20:30)
[2022-08-10] MEDS: LACOSAMIDE 50 MG TABLET PO SCH ×2 (07:44→20:29)
[2022-08-10] MEDS: AmLODIPine BESYLATE 5 MG TABLET PO SCH (07:45)
[2022-08-10 08:05] VITALS: BP 140/75
[2022-08-10] MEDS: INSULIN LISPRO 100 UNITS/ML SQ PRN ×2 (08:44→12:34)
[2022-08-10 08:56] LABS: BASOPHILS % (AUTO) 0.6 % (0.0-2.0); HEMATOCRIT 27.4 % (36-46); HEMOGLOBIN 9.3 g/dL (12.0-16.0); LYMPHOCYTES # (AUTO) 1.8 K/uL (1.0-4.8); LYMPHOCYTES % (AUTO) 26.3 % (22.0-44.0); MEAN CORPUSCULAR HEMOGLOBIN 30.5 pg (26.0-34.0); MEAN CORPUSCULAR HGB CONC 33.9 G/dL (31.0-37.0); MEAN CORPUSCULAR VOLUME 90 fL (80-100); MONOCYTES # (AUTO) 0.8 K/uL (0.1-1.0); MONOCYTES % (AUTO) 11.5 % (2.0-9.0); NEUTROPHILS % (AUTO) 59.6 % (40.0-70.0); PLATELET COUNT (AUTO) 365 K/uL (150-450); RED BLOOD CELL COUNT(AUTO) 3.05 MIL/uL (4.00-5.20); RED CELL DISTRIBUTION WIDTH 17.1 % (11.5-14.5)
[2022-08-10 08:59] LABS: CALCIUM, TOTAL 8.9 mg/dL (8.8-10.5); CREATININE 4.87 mg/dL (0.60-1.30); MAGNESIUM 2.3 mg/dL (1.80-2.40); PHOSPHORUS 2.5 mg/dL (2.5-4.9); POTASSIUM 4.3 mmol/L (3.5-5.1)
[2022-08-10 11:41] LABS: GLUCOMETER DEV NAME(LOC) 2WR.2B; GLUCOSE,POINT OF CARE 187 MG/DL (70-110)
[2022-08-10 16:46] LABS: GLUCOMETER DEV NAME(LOC) 2WR.2B; GLUCOSE,POINT OF CARE 130 MG/DL (70-110)
[2022-08-10 20:00] VITALS: BP 148/59
[2022-08-10] MEDS: CITALOPRAM HYDROBROMIDE 10 MG TABLET PO SCH (20:28)
[2022-08-10] MEDS: LATANOPROST 0.005% 2.5 ML OPHTHALMIC SOLUTION OU SCH (20:28)
[2022-08-10] MEDS: SENNOSIDES 8.6 MG TABLET PO SCH (20:29)
[2022-08-10] MEDS: INSULIN GLARGINE,HUM.REC.ANLOG 100 UNITS/ML SQ SCH (20:50)
[2022-08-10 21:25] LABS: GLUCOMETER DEV NAME(LOC) 2WR.2B; GLUCOSE,POINT OF CARE 112 MG/DL (70-110)
[2022-08-11 06:41] LABS: GLUCOMETER DEV NAME(LOC) 2WR.1C; GLUCOSE,POINT OF CARE 132 MG/DL (70-110)
[2022-08-11] MEDS: LANSOPRAZOLE 30 MG CAPSULE PO SCH (06:41)
[2022-08-11 08:00] VITALS: BP 147/73
[2022-08-11] MEDS: ETHYL ALCOHOL 62% ANTISEPTIC NASAL SANITIZER 0.6 ML AMPUL NASAL SCH (08:03)
[2022-08-11] MEDS: SEVELAMER CARBONATE 800 MG TABLET PO SCH ×2 (08:03→11:53)
[2022-08-11] MEDS: ROSUVASTATIN CALCIUM 20 MG TABLET PO SCH (08:04)
[2022-08-11] MEDS: DORZOLAMIDE HCL 2% 10 ML OPHTHALMIC SOLUTION OU SCH (08:04)
[2022-08-11] MEDS: APIXABAN 2.5 MG TABLET PO SCH (08:04)
[2022-08-11] MEDS: CARVEDILOL 12.5 MG TABLET PO SCH (08:04)
[2022-08-11] MEDS: DOCUSATE SODIUM 250 MG CAPSULE PO SCH (08:04)
[2022-08-11] MEDS: FOLIC ACID/VIT B COMPLEX AND C TABLET PO SCH (08:05)
[2022-08-11] MEDS: LACOSAMIDE 50 MG TABLET PO SCH (08:05)
[2022-08-11] MEDS: LevETIRAcetam 500 MG TABLET PO SCH (08:05)
[2022-08-11] MEDS: AmLODIPine BESYLATE 5 MG TABLET PO SCH (08:05)
[2022-08-11] MEDS: CALCITRIOL 0.25 MCG CAPSULE PO SCH (08:05)
[2022-08-11] MEDS: EPOETIN ALFA 10,000 UNITS/ML 2 ML VIAL SQ SCH (08:05)
[2022-08-11] MEDS: FUROSEMIDE 40 MG TABLET PO SCH (08:05)
[2022-08-11] MEDS: DICLOFENAC SODIUM 1% 100 GM GEL [2GM] TP SCH (08:06)
[2022-08-11] MEDS: HYDROCORTISONE 1% 30 GM OINTMENT TP SCH (08:06)
[2022-08-11] MEDS: INSULIN LISPRO 100 UNITS/ML SQ PRN (11:51)
[2022-08-11 13:01] LABS: GLUCOMETER DEV NAME(LOC) 2WR.1C; GLUCOSE,POINT OF CARE 168 MG/DL (70-110)
[2022-08-11 20:26] LABS: GLUCOMETER DEV NAME(LOC) 5S.1B; GLUCOSE,POINT OF CARE 186 MG/DL (70-110)
[2022-08-11] MEDS ORDERED: LACOSAMIDE 50 MG TABLET PO SCH (21:00)
[2022-08-12 07:32] LABS: MAGNESIUM 2.3 mg/dL (1.80-2.40); PHOSPHORUS 2.3 mg/dL (2.5-4.9)
[2022-08-12 09:31] LABS: BASOPHILS % (AUTO) 0.9 % (0.0-2.0); EOSINOPHILS % (AUTO) 0.5 % (1.0-6.0); HEMATOCRIT 28.2 % (36-46); HEMOGLOBIN 9.6 g/dL (12.0-16.0); LYMPHOCYTES # (AUTO) 1.5 K/uL (1.0-4.8); LYMPHOCYTES % (AUTO) 21.8 % (22.0-44.0); MEAN CORPUSCULAR HEMOGLOBIN 30.5 pg (26.0-34.0); MEAN CORPUSCULAR HGB CONC 33.9 G/dL (31.0-37.0); MEAN CORPUSCULAR VOLUME 90 fL (80-100); MONOCYTES # (AUTO) 0.9 K/uL (0.1-1.0); MONOCYTES % (AUTO) 13.9 % (2.0-9.0); NEUTROPHILS # (AUTO) 4.3 K/uL (1.8-7.7); NEUTROPHILS % (AUTO) 62.9 % (40.0-70.0); PLATELET COUNT (AUTO) 432 K/uL (150-450); RED BLOOD CELL COUNT(AUTO) 3.14 MIL/uL (4.00-5.20); RED CELL DISTRIBUTION WIDTH 17.3 % (11.5-14.5)
== END 2022-08-11 12:40 | DRG 193 ==
LOC: 2WR 17:01
PROVIDERS: ADMIT Physical Medicine & Rehabilitation; ATTEND Physical Medicine & Rehabilitation
PROC: 5A1D70Z Performance of Urinary Filtration, Intermittent, Less than 6 Hours Per Day (ICD-10-PCS; 2022-07-21)
PROC: 5A1D70Z Performance of Urinary Filtration, Intermittent, Less than 6 Hours Per Day (ICD-10-PCS; 2022-07-23)
PROC: 5A1D70Z Performance of Urinary Filtration, Intermittent, Less than 6 Hours Per Day (ICD-10-PCS; 2022-07-25)
PROC: 5A1D70Z Performance of Urinary Filtration, Intermittent, Less than 6 Hours Per Day (ICD-10-PCS; 2022-07-28)
PROC: 4A00X4Z Measurement of Central Nervous Electrical Activity, External Approach (ICD-10-PCS; principal; 2022-07-29)
PROC: 5A1D70Z Performance of Urinary Filtration, Intermittent, Less than 6 Hours Per Day (ICD-10-PCS; 2022-07-30)
PROC: 5A1D70Z Performance of Urinary Filtration, Intermittent, Less than 6 Hours Per Day (ICD-10-PCS; 2022-08-01)
PROC: 5A1D70Z Performance of Urinary Filtration, Intermittent, Less than 6 Hours Per Day (ICD-10-PCS; 2022-08-04)
PROC: 5A1D70Z Performance of Urinary Filtration, Intermittent, Less than 6 Hours Per Day (ICD-10-PCS; 2022-08-06)
PROC: 5A1D70Z Performance of Urinary Filtration, Intermittent, Less than 6 Hours Per Day (ICD-10-PCS; 2022-08-08)
DX: J18.9 Pneumonia, unspecified organism (principal); J96.91 Respiratory failure, unspecified with hypoxia; K26.4 Chronic or unspecified duodenal ulcer with hemorrhage; N18.6 End stage renal disease; I12.0 Hypertensive chronic kidney disease with stage 5 chronic kidney disease or end stage renal disease; I82.C11 Acute embolism and thrombosis of right internal jugular vein; I69.351 Hemiplegia and hemiparesis following cerebral infarction affecting right dominant side; E87.1 Hypo-osmolality and hyponatremia; T82.7XXA Infection and inflammatory reaction due to other cardiac and vascular devices, implants and grafts, initial encounter; E11.22 Type 2 diabetes mellitus with diabetic chronic kidney disease; D63.1 Anemia in chronic kidney disease; E78.5 Hyperlipidemia, unspecified; E87.6 Hypokalemia; E66.9 Obesity, unspecified; Z68.31 Body mass index [BMI] 31.0-31.9, adult; I25.10 Atherosclerotic heart disease of native coronary artery without angina pectoris; E11.319 Type 2 diabetes mellitus with unspecified diabetic retinopathy without macular edema; E11.40 Type 2 diabetes mellitus with diabetic neuropathy, unspecified; R62.7 Adult failure to thrive; R32 Unspecified urinary incontinence; G40.909 Epilepsy, unspecified, not intractable, without status epilepticus; R29.810 Facial weakness; R13.10 Dysphagia, unspecified; H54.8 Legal blindness, as defined in USA; B95.61 Methicillin susceptible Staphylococcus aureus infection as the cause of diseases classified elsewhere; Y83.8 Other surgical procedures as the cause of abnormal reaction of the patient, or of later complication, without mention of misadventure at the time of the procedure; K14.8 Other diseases of tongue; M79.89 Other specified soft tissue disorders; M25.519 Pain in unspecified shoulder; R05.9 Cough, unspecified; R15.9 Full incontinence of feces; R25.1 Tremor, unspecified; R30.0 Dysuria; R34 Anuria and oliguria; R47.81 Slurred speech; Y92.89 Other specified places as the place of occurrence of the external cause; Z79.4 Long term (current) use of insulin; Z99.2 Dependence on renal dialysis; Z83.3 Family history of diabetes mellitus; Z86.718 Personal history of other venous thrombosis and embolism; I25.2 Old myocardial infarction; F32.A Depression, unspecified; Z88.1 Allergy status to other antibiotic agents; Z88.8 Allergy status to other drugs, medicaments and biological substances; Z79.899 Other long term (current) drug therapy
CPT/HCPCS: 70496; 70498; 70551; 71045; 74018; 80048; 80053; 81001; 81002; 82962; 83036; 83735; 84100; 84439; 84443; 84484; 85025; 85610; 85730; 86704; 86850; 86900; 86901; 87040; 87081; 87340; 90935; 92507; 92523; 92526; 92610; 93005; 95816; 97110; 97112; 97116; 97163; 97167; 97530; 97535; 99366; G0482; J0690; J0885; J1644; J1815; J2060; J7030; J7050; Q0162; Q9967; 36415-L1; 36415-TC; 70450; 70450-TC

== ENCOUNTER 2022-07-29 09:14 | Emergency (ER) | payer MEDICARE, OTHER ==
[~2022-07-29] VITALS: Ht 157.5 cm; Wt 78.6 kg
[~2022-07-29 09:14] MED LIST changes: -HEPARIN SODIUM,PORCINE 1,000 UNITS/ML VIAL ONE
[2022-07-29] MEDS ORDERED: SODIUM CHLORIDE 0.9% 100 ML ONE (09:20)
[2022-07-29] MEDS ORDERED: IOHEXOL 350 MG/ML 100 ML VIAL ONE (09:20)
[2022-07-29 11:38] VITALS: BP 183/77
== END 2022-07-29 11:45 | disposition home or self-care (01) ==
LOC: EMS 09:26
DX: R20.0 Anesthesia of skin (principal); R25.3 Fasciculation; E11.9 Type 2 diabetes mellitus without complications; I10 Essential (primary) hypertension; Z88.8 Allergy status to other drugs, medicaments and biological substances
CPT/HCPCS: 99291; 73030; Q9967; J7050

== ENCOUNTER 2022-08-11 11:46 | Inpatient (IN) | payer MEDICARE, OTHER ==
[~2022-08-11] VITALS: Ht 157.5 cm; Wt 79.5 kg
[2022-08-11] VITALS (13 sets, daily range): BP systolic 117–164; BP diastolic 46–93
[~2022-08-11 11:46] MED LIST changes: +APIX2.5T NG; +CARV12 NG; +CITA10TA99 NG; +CLON0.1T2 NG; -CYCL05OE OU; +DICL100G51 TP; +DORZ10DR6 OU; -ESCI-8 PO; +FOLI0.8T2 NG; +FURO40 NG; -HYDR25TA84 PO; +INSLAN SQ; -INSU300I SQ; +LACO100 NG; +LANS30CA56 NG; -LATA2.5D14 OU; +LEVE500S10 NG; -METO25 PO; -PANT-31 PO; -REPA2TAB8 PO; +SEVE0.8P6 NG; -SOLOSTAR SQ; +XALA2.5OS OU
[2022-08-11] MEDS ORDERED: ONDANSETRON HCL 4 MG/2 ML VIAL IVP PRN (12:00)
[2022-08-11] MEDS ORDERED: HEPARIN SODIUM,PORCINE 1,000 UNITS/ML VIAL IVP ONE ×3 (12:00→20:00)
[2022-08-11] MEDS ORDERED: DEXTROSE 50%-WATER 25 GM/50 ML SYRINGE IVP PRN (12:00)
[2022-08-11] MEDS ORDERED: ACETAMINOPHEN 325 MG TABLET NG PRN (12:00)
[2022-08-11] MEDS ORDERED: BISACODYL 10 MG RECTAL RECTAL SUPPOSITORY PR PRN (12:00)
[2022-08-11] MEDS ORDERED: SODIUM CHLORIDE 0.9% 2,000 ML ONE (16:08)
[2022-08-11] MEDS: HEPARIN SODIUM,PORCINE 5,000 UNITS/ML VIAL SQ SCH ×2 (17:07→23:29)
[2022-08-11] MEDS: SEVELAMER CARBONATE 800 MG POWDER PACKET NG SCH (18:00)
[2022-08-11 20:26] LABS: GLUCOMETER DEV NAME(LOC) 5S.2C; GLUCOSE,POINT OF CARE 140 MG/DL (70-110)
[2022-08-11] MEDS: CARVEDILOL 6.25 MG TABLET NG SCH (20:57)
[2022-08-11] MEDS: LevETIRAcetam 100 MG/ML 5 ML SOLUTION UDCUP NG SCH (20:57)
[2022-08-11] MEDS: DOCUSATE SODIUM 100 MG/10 ML LIQUID UDCUP NG SCH (20:57)
[2022-08-11] MEDS: LACOSAMIDE 100 MG TABLET NG SCH (20:57)
[2022-08-12 05:05] VITALS: BP 144/61
[2022-08-12 06:53] LABS: ALBUMIN 2.5 g/dL (3.4-5.0); BASOPHILS % (AUTO) 0.9 % (0.0-2.0); BILIRUBIN,TOTAL 0.6 mg/dL (0.1-1.0); CALCIUM, TOTAL 8.8 mg/dL (8.8-10.5); CREATININE 3.07 mg/dL (0.60-1.30); EOSINOPHILS % (AUTO) 0.2 % (1.0-6.0); HEMATOCRIT 28.1 % (36-46); HEMOGLOBIN 9.6 g/dL (12.0-16.0); LYMPHOCYTES # (AUTO) 1.8 K/uL (1.0-4.8); LYMPHOCYTES % (AUTO) 25.5 % (22.0-44.0); MEAN CORPUSCULAR HEMOGLOBIN 30.6 pg (26.0-34.0); MEAN CORPUSCULAR HGB CONC 34.2 G/dL (31.0-37.0); MEAN CORPUSCULAR VOLUME 89 fL (80-100); MONOCYTES # (AUTO) 0.9 K/uL (0.1-1.0); MONOCYTES % (AUTO) 13.3 % (2.0-9.0); NEUTROPHILS # (AUTO) 4.3 K/uL (1.8-7.7); NEUTROPHILS % (AUTO) 60.1 % (40.0-70.0); PLATELET COUNT (AUTO) 421 K/uL (150-450); POTASSIUM 3.4 mmol/L (3.5-5.1); RED BLOOD CELL COUNT(AUTO) 3.14 MIL/uL (4.00-5.20); RED CELL DISTRIBUTION WIDTH 17.1 % (11.5-14.5); TOTAL PROTEIN, SERUM 7.6 g/dL (6.4-8.2)
[2022-08-12 07:33] VITALS: BP 153/73
[2022-08-12] MEDS: SEVELAMER CARBONATE 800 MG POWDER PACKET NG SCH ×3 (07:53→18:00)
[2022-08-12] MEDS: DOCUSATE SODIUM 100 MG/10 ML LIQUID UDCUP NG SCH ×2 (07:53→21:00)
[2022-08-12] MEDS: CARVEDILOL 6.25 MG TABLET NG SCH ×2 (07:54→21:00)
[2022-08-12] MEDS: ROSUVASTATIN CALCIUM 20 MG TABLET NG SCH (07:54)
[2022-08-12] MEDS: LevETIRAcetam 100 MG/ML 5 ML SOLUTION UDCUP NG SCH (07:54)
[2022-08-12] MEDS: LACOSAMIDE 100 MG TABLET NG SCH (07:55)
[2022-08-12] MEDS: FAMOTIDINE 20 MG TABLET NG SCH (07:55)
[2022-08-12] MEDS: AmLODIPine BESYLATE 5 MG TABLET NG SCH (07:55)
[2022-08-12] MEDS: HEPARIN SODIUM,PORCINE 5,000 UNITS/ML VIAL SQ SCH ×3 (08:10→23:45)
[2022-08-12 10:52] VITALS: BP 164/74
[2022-08-12 11:01] LABS: GLUCOMETER DEV NAME(LOC) 5S.1B; GLUCOSE,POINT OF CARE 112 MG/DL (70-110)
[2022-08-12] MEDS: INSULIN LISPRO 100 UNITS/ML SQ PRN (11:40)
[2022-08-12] MEDS ORDERED: LORazepam 2 MG/ML VIAL IVP PRN (13:00)
[2022-08-12] MEDS: LevETIRAcetam 500 MG in DEXTROSE 5%-WATER 100 ML IV SCH (14:01)
[2022-08-12 15:03] VITALS: BP 165/71
[2022-08-12 17:36] LABS: GLUCOMETER DEV NAME(LOC) 5N.1C; GLUCOSE,POINT OF CARE 93 MG/DL (70-110)
[2022-08-12 17:37] LABS: GLUCOMETER DEV NAME(LOC) 5N.1C; GLUCOSE,POINT OF CARE 159 MG/DL (70-110)
[2022-08-12 19:35] VITALS: BP 164/72
[2022-08-12 20:01] LABS: GLUCOMETER DEV NAME(LOC) 5S.2C; GLUCOSE,POINT OF CARE 100 MG/DL (70-110)
[2022-08-12 21:16] LABS: GLUCOMETER DEV NAME(LOC) 5N.2C; GLUCOSE,POINT OF CARE 96 MG/DL (70-110)
[2022-08-12] MEDS: NITROGLYCERIN 2% (1 GM=INCH) OINTMENT PACKET TP SCH (21:36)
[2022-08-12 23:51] VITALS: BP 166/67
[2022-08-13] VITALS (12 sets, daily range): BP systolic 102–172; BP diastolic 53–78
[2022-08-13] MEDS ORDERED: NITROGLYCERIN 2% (1 GM=INCH) OINTMENT PACKET TP SCH
[2022-08-13] MEDS: LevETIRAcetam 500 MG in DEXTROSE 5%-WATER 100 ML IV SCH (01:55)
[2022-08-13 06:56] LABS: GLUCOMETER DEV NAME(LOC) 5N.1C; GLUCOSE,POINT OF CARE 102 MG/DL (70-110)
[2022-08-13] MEDS: DOCUSATE SODIUM 100 MG/10 ML LIQUID UDCUP NG SCH ×2 (07:48→21:16)
[2022-08-13] MEDS: SEVELAMER CARBONATE 800 MG POWDER PACKET NG SCH ×3 (07:48→18:15)
[2022-08-13] MEDS: CARVEDILOL 6.25 MG TABLET NG SCH ×2 (07:48→21:16)
[2022-08-13] MEDS: ROSUVASTATIN CALCIUM 20 MG TABLET NG SCH (07:49)
[2022-08-13] MEDS: AmLODIPine BESYLATE 5 MG TABLET NG SCH (07:49)
[2022-08-13] MEDS: FAMOTIDINE 20 MG TABLET NG SCH (07:49)
[2022-08-13] MEDS: NITROGLYCERIN 2% (1 GM=INCH) OINTMENT PACKET TP SCH ×4 (08:18→23:57)
[2022-08-13] MEDS: HEPARIN SODIUM,PORCINE 5,000 UNITS/ML VIAL SQ SCH ×3 (08:18→23:57)
[2022-08-13] MEDS: EPOETIN ALFA 10,000 UNITS/ML 2 ML VIAL SQ SCH (08:19)
[2022-08-13 17:26] LABS: GLUCOMETER DEV NAME(LOC) 5N.1C; GLUCOSE,POINT OF CARE 104 MG/DL (70-110)
[2022-08-13 17:31] LABS: GLUCOMETER DEV NAME(LOC) 5S.2C; GLUCOSE,POINT OF CARE 107 MG/DL (70-110)
[2022-08-13] MEDS: INSULIN LISPRO 100 UNITS/ML SQ PRN (21:31)
[2022-08-13 22:06] LABS: GLUCOMETER DEV NAME(LOC) 5S.2C; GLUCOSE,POINT OF CARE 165 MG/DL (70-110)
[2022-08-14 00:05] VITALS: BP 148/68
[2022-08-14 05:41] VITALS: BP 154/72
[2022-08-14 08:14] VITALS: BP 154/72
[2022-08-14] MEDS: AmLODIPine BESYLATE 5 MG TABLET NG SCH (10:08)
[2022-08-14] MEDS: HEPARIN SODIUM,PORCINE 5,000 UNITS/ML VIAL SQ SCH ×3 (10:08→23:45)
[2022-08-14] MEDS: ROSUVASTATIN CALCIUM 20 MG TABLET NG SCH (10:08)
[2022-08-14] MEDS: SEVELAMER CARBONATE 800 MG POWDER PACKET NG SCH ×3 (10:08→18:27)
[2022-08-14] MEDS: DOCUSATE SODIUM 100 MG/10 ML LIQUID UDCUP NG SCH ×2 (10:08→20:28)
[2022-08-14] MEDS: CARVEDILOL 6.25 MG TABLET NG SCH ×2 (10:08→20:28)
[2022-08-14] MEDS: NITROGLYCERIN 2% (1 GM=INCH) OINTMENT PACKET TP SCH ×3 (10:08→23:45)
[2022-08-14] MEDS: FAMOTIDINE 20 MG TABLET NG SCH (10:09)
[2022-08-14 10:51] LABS: GLUCOMETER DEV NAME(LOC) 5N.1C; GLUCOSE,POINT OF CARE 124 MG/DL (70-110)
[2022-08-14 11:47] VITALS: BP 144/69
[2022-08-14] MEDS: INSULIN LISPRO 100 UNITS/ML SQ PRN ×3 (12:38→20:29)
[2022-08-14 15:02] VITALS: BP 143/62
[2022-08-14 19:51] LABS: GLUCOMETER DEV NAME(LOC) 5N.2C; GLUCOSE,POINT OF CARE 210 MG/DL (70-110)
[2022-08-14 20:00] VITALS: BP 159/72
[2022-08-15] VITALS (16 sets, daily range): BP systolic 91–173; BP diastolic 41–80
[2022-08-15 06:07] LABS: GLUCOMETER DEV NAME(LOC) 5S.2C; GLUCOSE,POINT OF CARE 221 MG/DL (70-110)
[2022-08-15] MEDS: INSULIN LISPRO 100 UNITS/ML SQ PRN ×4 (06:14→20:25)
[2022-08-15 06:46] LABS: GLUCOMETER DEV NAME(LOC) 5N.1C; GLUCOSE,POINT OF CARE 184 MG/DL (70-110)
[2022-08-15] MEDS: AmLODIPine BESYLATE 5 MG TABLET NG SCH (10:01)
[2022-08-15] MEDS: SEVELAMER CARBONATE 800 MG POWDER PACKET NG SCH ×2 (10:01→11:33)
[2022-08-15] MEDS: DOCUSATE SODIUM 100 MG/10 ML LIQUID UDCUP NG SCH ×2 (10:01→20:20)
[2022-08-15] MEDS: FAMOTIDINE 20 MG TABLET NG SCH (10:01)
[2022-08-15] MEDS: ROSUVASTATIN CALCIUM 20 MG TABLET NG SCH (10:01)
[2022-08-15] MEDS: CARVEDILOL 6.25 MG TABLET NG SCH ×2 (10:01→20:20)
[2022-08-15] MEDS: NITROGLYCERIN 2% (1 GM=INCH) OINTMENT PACKET TP SCH ×3 (10:02→23:36)
[2022-08-15] MEDS: HEPARIN SODIUM,PORCINE 5,000 UNITS/ML VIAL SQ SCH ×3 (10:03→23:36)
[2022-08-15] MEDS: EPOETIN ALFA 10,000 UNITS/ML 2 ML VIAL SQ SCH (10:03)
[2022-08-15] MEDS ORDERED: SODIUM CHLORIDE 0.9% 2,000 ML ONE (10:51)
[2022-08-15 13:06] LABS: GLUCOMETER DEV NAME(LOC) 5N.2C; GLUCOSE,POINT OF CARE 169 MG/DL (70-110)
[2022-08-15] MEDS ORDERED: HEPARIN SODIUM,PORCINE 1,000 UNITS/ML VIAL IVP ONE (16:35)
[2022-08-15] MEDS ORDERED: ALBUMIN HUMAN 25%-12.5GM/50ML IV BOTTLE IV ONE (16:35)
[2022-08-16 00:51] LABS: GLUCOMETER DEV NAME(LOC) 5N.2C; GLUCOSE,POINT OF CARE 209 MG/DL (70-110)
[2022-08-16 00:51] LABS: GLUCOMETER DEV NAME(LOC) 5N.2C; GLUCOSE,POINT OF CARE 196 MG/DL (70-110)
[2022-08-16 04:03] VITALS: BP 143/75
[2022-08-16] MEDS: INSULIN LISPRO 100 UNITS/ML SQ PRN ×4 (06:11→20:01)
[2022-08-16 07:25] LABS: BASOPHILS % (AUTO) 0.6 % (0.0-2.0); EOSINOPHILS % (AUTO) 4.3 % (1.0-6.0); HEMATOCRIT 28.1 % (36-46); HEMOGLOBIN 9.6 g/dL (12.0-16.0); LYMPHOCYTES # (AUTO) 2.3 K/uL (1.0-4.8); MEAN CORPUSCULAR HEMOGLOBIN 30.6 pg (26.0-34.0); MEAN CORPUSCULAR HGB CONC 34.1 G/dL (31.0-37.0); MEAN CORPUSCULAR VOLUME 90 fL (80-100); MONOCYTES # (AUTO) 0.7 K/uL (0.1-1.0); MONOCYTES % (AUTO) 12.1 % (2.0-9.0); NEUTROPHILS # (AUTO) 2.5 K/uL (1.8-7.7); PLATELET COUNT (AUTO) 371 K/uL (150-450); RED BLOOD CELL COUNT(AUTO) 3.13 MIL/uL (4.00-5.20)
[2022-08-16 07:35] VITALS: BP 139/82
[2022-08-16 07:46] LABS: GLUCOMETER DEV NAME(LOC) 5S.2C; GLUCOSE,POINT OF CARE 154 MG/DL (70-110)
[2022-08-16 07:55] LABS: CREATININE 3.37 mg/dL (0.60-1.30); POTASSIUM 3.8 mmol/L (3.5-5.1)
[2022-08-16] MEDS: AmLODIPine BESYLATE 5 MG TABLET NG SCH (09:06)
[2022-08-16] MEDS: CARVEDILOL 6.25 MG TABLET NG SCH ×2 (09:06→20:01)
[2022-08-16] MEDS: FAMOTIDINE 20 MG TABLET NG SCH (09:06)
[2022-08-16] MEDS: HEPARIN SODIUM,PORCINE 5,000 UNITS/ML VIAL SQ SCH ×3 (09:06→23:49)
[2022-08-16] MEDS: ROSUVASTATIN CALCIUM 20 MG TABLET NG SCH (09:06)
[2022-08-16] MEDS: DOCUSATE SODIUM 100 MG/10 ML LIQUID UDCUP NG SCH ×2 (09:07→20:01)
[2022-08-16] MEDS: NITROGLYCERIN 2% (1 GM=INCH) OINTMENT PACKET TP SCH ×3 (09:07→23:49)
[2022-08-16 11:37] VITALS: BP 132/67
[2022-08-16 15:50] VITALS: BP 137/72
[2022-08-16 16:51] LABS: GLUCOMETER DEV NAME(LOC) 5N.2C; GLUCOSE,POINT OF CARE 187 MG/DL (70-110)
[2022-08-16 20:59] VITALS: BP 131/70
[2022-08-17 01:30] VITALS: BP 168/70
[2022-08-17 05:15] VITALS: BP 139/70
[2022-08-17] MEDS: INSULIN LISPRO 100 UNITS/ML SQ PRN ×4 (05:59→20:13)
[2022-08-17 07:20] VITALS: BP 136/74
[2022-08-17 08:15] LABS: GLUCOMETER DEV NAME(LOC) 5N.2C; GLUCOSE,POINT OF CARE 182 MG/DL (70-110)
[2022-08-17 08:16] LABS: GLUCOMETER DEV NAME(LOC) 5N.2C; GLUCOSE,POINT OF CARE 182 MG/DL (70-110)
[2022-08-17 08:16] LABS: GLUCOMETER DEV NAME(LOC) 5N.2C; GLUCOSE,POINT OF CARE 156 MG/DL (70-110)
[2022-08-17] MEDS: NITROGLYCERIN 2% (1 GM=INCH) OINTMENT PACKET TP SCH ×2 (08:59→16:58)
[2022-08-17] MEDS: HEPARIN SODIUM,PORCINE 5,000 UNITS/ML VIAL SQ SCH ×2 (08:59→16:59)
[2022-08-17] MEDS: ROSUVASTATIN CALCIUM 20 MG TABLET NG SCH (09:00)
[2022-08-17] MEDS: CARVEDILOL 6.25 MG TABLET NG SCH ×2 (09:00→20:11)
[2022-08-17] MEDS: FAMOTIDINE 20 MG TABLET NG SCH (09:00)
[2022-08-17] MEDS: AmLODIPine BESYLATE 5 MG TABLET NG SCH (09:00)
[2022-08-17] MEDS: DOCUSATE SODIUM 100 MG/10 ML LIQUID UDCUP NG SCH ×2 (09:00→20:11)
[2022-08-17 11:18] VITALS: BP 140/70
[2022-08-17] MEDS: ASPIRIN 81 MG CHEWABLE TABLET PO SCH (11:27)
[2022-08-17 15:45] VITALS: BP 105/49
[2022-08-17 20:39] VITALS: BP 108/59
[2022-08-18] VITALS (13 sets, daily range): BP systolic 93–158; BP diastolic 42–81
[2022-08-18 00:42] LABS: GLUCOMETER DEV NAME(LOC) 5N.2C; GLUCOSE,POINT OF CARE 207 MG/DL (70-110)
[2022-08-18 00:42] LABS: GLUCOMETER DEV NAME(LOC) 5N.2C; GLUCOSE,POINT OF CARE 222 MG/DL (70-110)
[2022-08-18 00:42] LABS: GLUCOMETER DEV NAME(LOC) 5N.2C; GLUCOSE,POINT OF CARE 182 MG/DL (70-110)
[2022-08-18] MEDS: HEPARIN SODIUM,PORCINE 5,000 UNITS/ML VIAL SQ SCH ×2 (01:08→08:24)
[2022-08-18] MEDS: NITROGLYCERIN 2% (1 GM=INCH) OINTMENT PACKET TP SCH ×2 (01:10→08:00)
[2022-08-18] MEDS: INSULIN LISPRO 100 UNITS/ML SQ PRN (05:51)
[2022-08-18] MEDS: CARVEDILOL 6.25 MG TABLET NG SCH (08:20)
[2022-08-18] MEDS: DOCUSATE SODIUM 100 MG/10 ML LIQUID UDCUP NG SCH (08:20)
[2022-08-18] MEDS: AmLODIPine BESYLATE 5 MG TABLET NG SCH (08:21)
[2022-08-18] MEDS: ROSUVASTATIN CALCIUM 20 MG TABLET NG SCH (08:24)
[2022-08-18] MEDS: ASPIRIN 81 MG CHEWABLE TABLET PO SCH (08:24)
[2022-08-18] MEDS: FAMOTIDINE 20 MG TABLET NG SCH (08:24)
[2022-08-18] MEDS: EPOETIN ALFA 10,000 UNITS/ML 2 ML VIAL SQ SCH (08:28)
[2022-08-18] MEDS ORDERED: HEPARIN SODIUM,PORCINE 1,000 UNITS/ML VIAL IVCATH ONE ×2 (13:45)
[2022-08-18] MEDS ORDERED: HEPARIN SODIUM,PORCINE 1,000 UNITS/ML VIAL IVP ONE (14:49)
[2022-08-18 19:46] LABS: GLUCOMETER DEV NAME(LOC) 5N.2C; GLUCOSE,POINT OF CARE 150 MG/DL (70-110)
[2022-08-18 19:46] LABS: GLUCOMETER DEV NAME(LOC) 5S.2C; GLUCOSE,POINT OF CARE 147 MG/DL (70-110)
== END 2022-08-18 14:50 | DRG 640 ==
LOC: 5S 12:50
PROVIDERS: ADMIT Internal Medicine; ATTEND Internal Medicine
PROC: 5A1D70Z Performance of Urinary Filtration, Intermittent, Less than 6 Hours Per Day (ICD-10-PCS; principal; 2022-08-11)
PROC: 5A1D70Z Performance of Urinary Filtration, Intermittent, Less than 6 Hours Per Day (ICD-10-PCS; 2022-08-13)
PROC: 5A1D70Z Performance of Urinary Filtration, Intermittent, Less than 6 Hours Per Day (ICD-10-PCS; 2022-08-18)
PROC: 5A1D70Z Performance of Urinary Filtration, Intermittent, Less than 6 Hours Per Day (ICD-10-PCS; 2022-08-18)
DX: E87.1 Hypo-osmolality and hyponatremia (principal); N18.6 End stage renal disease; I12.0 Hypertensive chronic kidney disease with stage 5 chronic kidney disease or end stage renal disease; R44.3 Hallucinations, unspecified; E44.0 Moderate protein-calorie malnutrition; R62.7 Adult failure to thrive; E87.6 Hypokalemia; D63.1 Anemia in chronic kidney disease; E11.319 Type 2 diabetes mellitus with unspecified diabetic retinopathy without macular edema; E66.9 Obesity, unspecified; E11.40 Type 2 diabetes mellitus with diabetic neuropathy, unspecified; E11.22 Type 2 diabetes mellitus with diabetic chronic kidney disease; E78.5 Hyperlipidemia, unspecified; I25.10 Atherosclerotic heart disease of native coronary artery without angina pectoris; G40.909 Epilepsy, unspecified, not intractable, without status epilepticus; R13.10 Dysphagia, unspecified; Z68.32 Body mass index [BMI] 32.0-32.9, adult; Z86.73 Personal history of transient ischemic attack (TIA), and cerebral infarction without residual deficits; Z87.11 Personal history of peptic ulcer disease; Z88.1 Allergy status to other antibiotic agents; Z88.8 Allergy status to other drugs, medicaments and biological substances; I25.2 Old myocardial infarction; Z79.4 Long term (current) use of insulin; Z79.899 Other long term (current) drug therapy; Z79.01 Long term (current) use of anticoagulants; Z82.49 Family history of ischemic heart disease and other diseases of the circulatory system; Z83.3 Family history of diabetes mellitus
CPT/HCPCS: 80048; 80053; 82962; 85025; 87081; 87340; 90935; 92507; 92523; 92526; 92610; 97116; 97162; 97163; 97167; 97530; 97535; J0712; J0885; J1644; J7030; J7060; P9047